=== PATIENT | female | born 1985 | race Caucasian/White ===

== ENCOUNTER 2017-03-28 18:19 | Emergency (ER) | payer OTHER ==
[~2017-03-28] VITALS: Ht 160 cm; Wt 59.1 kg
[~2017-03-28 18:19] MED LIST: AMLO-511 PO; ATEN25TA PO; CIPR-278 PO; CLIN300C3 PO
[2017-03-28] MEDS ORDERED: CITA10TA68 PO (18:42)
[2017-03-28] MEDS ORDERED: CLON1 PO (18:42)
[2017-03-28] MEDS ORDERED: LORazepam 1 MG TABLET PO ONE (19:00)
[2017-03-28 19:22] LABS: AMPHET/METH SCREEN,URINE NEGATIVE (NEGATIVE); BARBITURATE SCREEN, URINE NEGATIVE (NEGATIVE); BENZODIAZEPINES SCREEN,URINE NEGATIVE (NEGATIVE); CANNABINOID SCREEN,URINE POSITIVE (NEGATIVE); COCAINE SCREEN,URINE NEGATIVE (NEGATIVE); METHADONE SCREEN, URINE NEGATIVE (NEGATIVE); OPIATE SCREEN,URINE NEGATIVE (NEGATIVE); PHENCYCLIDINE SCREEN,URINE NEGATIVE (NEGATIVE)
[2017-03-28 19:57] VITALS: BP 121/78
== END 2017-03-28 20:10 | disposition home or self-care (01) ==
LOC: EMS 18:27
DX: F41.9 Anxiety disorder, unspecified (principal); F32.9 Major depressive disorder, single episode, unspecified; I10 Essential (primary) hypertension; F19.90 Other psychoactive substance use, unspecified, uncomplicated; Z88.0 Allergy status to penicillin; Z88.2 Allergy status to sulfonamides; Z88.5 Allergy status to narcotic agent
CPT/HCPCS: 99284

== ENCOUNTER 2017-07-12 15:26 | Emergency (ER) | payer OTHER ==
[~2017-07-12] VITALS: Ht 160 cm; Wt 59.5 kg
[~2017-07-12 15:26] MED LIST changes: -AMLO-511 PO; -ATEN25TA PO; -CIPR-278 PO; +CITA10TA68 PO; -CLIN300C3 PO; +CLON1 PO
[2017-07-12 16:23] LABS: BASOPHILS % (AUTO) 0.6 % (0.0-2.0); EOSINOPHILS % (AUTO) 1.5 % (1.0-6.0); HEMATOCRIT 37.1 % (36-46); LYMPHOCYTES # (AUTO) 2.3 K/uL (1.0-4.8); LYMPHOCYTES % (AUTO) 33.6 % (22.0-44.0); MEAN CORPUSCULAR HEMOGLOBIN 31.8 pg (26.0-34.0); MEAN CORPUSCULAR HGB CONC 35.1 G/dL (31.0-37.0); MEAN CORPUSCULAR VOLUME 91 fL (80-100); MONOCYTES # (AUTO) 0.4 K/uL (0.1-1.0); MONOCYTES % (AUTO) 6.1 % (2.0-9.0); NEUTROPHILS # (AUTO) 3.9 K/uL (1.8-7.7); NEUTROPHILS % (AUTO) 58.2 % (40.0-70.0); PLATELET COUNT (AUTO) 163 K/uL (150-450); RED BLOOD CELL COUNT(AUTO) 4.09 MIL/uL (4.00-5.20); RED CELL DISTRIBUTION WIDTH 12.6 % (11.5-14.5)
[2017-07-12 16:35] LABS: ANION GAP 7 mmol/L (8-16); CALCIUM, TOTAL 8.4 mg/dL (8.8-10.5); CARBON DIOXIDE 28 mmol/L (22-29); CHLORIDE 105 mmol/L (98-107); CREATININE 0.71 mg/dL (0.60-1.30); GLOMERULAR FILTR. RATE CALC > 60 mL/min (>60); GLUCOSE,RANDOM 87 mg/dL (70-110); SODIUM SERUM 140 mmol/L (136-145); UREA NITROGEN, BLOOD 9 mg/dL (7-18)
[2017-07-12 16:43] LABS: ALANINE AMINOTRANSFERASE 30 U/L (12-78); ALBUMIN 3.8 g/dL (3.4-5.0); ALKALINE PHOSPHATASE 50 U/L (46-116); ASPARTATE AMINOTRANSFERASE 25 U/L (15-37); BILIRUBIN,TOTAL 0.3 mg/dL (0.1-1.0); TOTAL PROTEIN, SERUM 7.2 g/dL (6.4-8.2)
[2017-07-12 16:46] LABS: B-TYPE NATRIURETIC PEPTIDE < 5 pg/mL (0-100)
[2017-07-12 18:14] LABS: PLATELET MORPHOLOGY COMMENT GIANT PLTS PRESENT
[2017-07-12 19:30] VITALS: BP 127/84
[2017-07-12 19:37] LABS: APPEARANCE,URINE CLEAR (CLEAR)
[2017-07-12 19:38] LABS: BILIRUBIN,URINE NEGATIVE (NEGATIVE); GLUCOSE, URINE (UA) NEGATIVE (NEGATIVE); KETONES,URINE NEGATIVE (NEGATIVE); LEUKOCYTE ESTERASE ,URINE NEGATIVE (NEGATIVE); NITRATE,URINE NEGATIVE (NEGATIVE); OCCULT BLOOD,URINE NEGATIVE (NEGATIVE); PH,URINE 6.5 (5.0-8.0); PROTEIN,URINE NEGATIVE (NEGATIVE); UROBILINOGEN,URINE 0.2 mg/dL (<=1.0)
[2017-07-12 19:41] LABS: AMPHET/METH SCREEN,URINE NEGATIVE (NEGATIVE); BARBITURATE SCREEN, URINE NEGATIVE (NEGATIVE); BENZODIAZEPINES SCREEN,URINE NEGATIVE (NEGATIVE); CANNABINOID SCREEN,URINE NEGATIVE (NEGATIVE); COCAINE SCREEN,URINE NEGATIVE (NEGATIVE); METHADONE SCREEN, URINE NEGATIVE (NEGATIVE); OPIATE SCREEN,URINE NEGATIVE (NEGATIVE)
[2017-07-12 19:42] LABS: PHENCYCLIDINE SCREEN,URINE NEGATIVE (NEGATIVE)
== END 2017-07-12 20:03 | disposition home or self-care (01) ==
LOC: EMS 15:27
DX: R51 Headache (principal); R42 Dizziness and giddiness; F32.9 Major depressive disorder, single episode, unspecified; F41.9 Anxiety disorder, unspecified; R06.02 Shortness of breath; R05 Cough; I10 Essential (primary) hypertension; F15.10 Other stimulant abuse, uncomplicated; Z88.0 Allergy status to penicillin; Z88.2 Allergy status to sulfonamides; Z79.899 Other long term (current) drug therapy
CPT/HCPCS: 93005; 99285

== ENCOUNTER 2017-12-12 23:07 | Emergency (ER) | payer OTHER ==
[~2017-12-12] VITALS: Ht 160 cm; Wt 61.8 kg
[2017-12-12] MEDS ORDERED: TRAZ-219 PO (23:39)
[2017-12-12] MEDS ORDERED: ESCI20TA PO (23:39)
[2017-12-12 23:49] LABS: BASOPHILS % (AUTO) 0.5 % (0.0-2.0); EOSINOPHILS % (AUTO) 1.9 % (1.0-6.0); HEMATOCRIT 35.3 % (36-46); HEMOGLOBIN 12.3 g/dL (12.0-16.0); LYMPHOCYTES # (AUTO) 1.9 K/uL (1.0-4.8); LYMPHOCYTES % (AUTO) 28.6 % (22.0-44.0); MEAN CORPUSCULAR HEMOGLOBIN 32.1 pg (26.0-34.0); MEAN CORPUSCULAR HGB CONC 34.7 G/dL (31.0-37.0); MEAN CORPUSCULAR VOLUME 93 fL (80-100); MONOCYTES # (AUTO) 0.5 K/uL (0.1-1.0); MONOCYTES % (AUTO) 8.1 % (2.0-9.0); NEUTROPHILS # (AUTO) 4.1 K/uL (1.8-7.7); NEUTROPHILS % (AUTO) 60.9 % (40.0-70.0); PLATELET COUNT (AUTO) 160 K/uL (150-450); RED BLOOD CELL COUNT(AUTO) 3.82 MIL/uL (4.00-5.20); RED CELL DISTRIBUTION WIDTH 13.2 % (11.5-14.5)
[2017-12-13 01:54] VITALS: BP 134/78
== END 2017-12-13 02:14 | disposition home or self-care (01) ==
LOC: EMS 23:08
DX: N93.9 Abnormal uterine and vaginal bleeding, unspecified (principal); M25.552 Pain in left hip; F41.9 Anxiety disorder, unspecified; F32.9 Major depressive disorder, single episode, unspecified; I10 Essential (primary) hypertension; F15.90 Other stimulant use, unspecified, uncomplicated; Z88.0 Allergy status to penicillin; Z88.2 Allergy status to sulfonamides; Z88.8 Allergy status to other drugs, medicaments and biological substances; Z79.899 Other long term (current) drug therapy

== ENCOUNTER 2018-01-06 21:30 | Emergency (ER) | payer OTHER ==
[~2018-01-06] VITALS: Ht 160 cm; Wt 59.1 kg
[~2018-01-06 21:30] MED LIST changes: -CITA10TA68 PO; -CLON1 PO; +ESCI20TA PO; +TRAZ-219 PO
[2018-01-06 21:53] VITALS: BP 115/78
[2018-01-06] MEDS ORDERED: TRAZ-220 PO (21:58)
[2018-01-06] MEDS ORDERED: ARIP5TAB8 PO (21:58)
[2018-01-06 22:29] LABS: BASOPHILS % (AUTO) 0.7 % (0.0-2.0); EOSINOPHILS % (AUTO) 0.8 % (1.0-6.0); HEMATOCRIT 39.6 % (36-46); HEMOGLOBIN 13.5 g/dL (12.0-16.0); LYMPHOCYTES # (AUTO) 1.8 K/uL (1.0-4.8); LYMPHOCYTES % (AUTO) 23.9 % (22.0-44.0); MEAN CORPUSCULAR HEMOGLOBIN 31.3 pg (26.0-34.0); MEAN CORPUSCULAR HGB CONC 34.2 G/dL (31.0-37.0); MEAN CORPUSCULAR VOLUME 91 fL (80-100); MONOCYTES # (AUTO) 0.4 K/uL (0.1-1.0); MONOCYTES % (AUTO) 5.7 % (2.0-9.0); NEUTROPHILS # (AUTO) 5.3 K/uL (1.8-7.7); NEUTROPHILS % (AUTO) 68.9 % (40.0-70.0); PLATELET COUNT (AUTO) 213 K/uL (150-450); RED BLOOD CELL COUNT(AUTO) 4.33 MIL/uL (4.00-5.20); RED CELL DISTRIBUTION WIDTH 13.1 % (11.5-14.5)
[2018-01-06 22:36] LABS: ANION GAP 14 mmol/L (8-16); CALCIUM, TOTAL 8.5 mg/dL (8.8-10.5); CARBON DIOXIDE 22 mmol/L (22-29); CHLORIDE 107 mmol/L (98-107); CREATININE 0.62 mg/dL (0.60-1.30); GLOMERULAR FILTR. RATE CALC > 60 mL/min (>60); GLUCOSE,RANDOM 85 mg/dL (70-110); POTASSIUM 3.4 mmol/L (3.5-5.1); SODIUM SERUM 143 mmol/L (136-145); UREA NITROGEN, BLOOD 9 mg/dL (7-18)
[2018-01-06 22:42] LABS: ALANINE AMINOTRANSFERASE 23 U/L (12-78); ALBUMIN 4.1 g/dL (3.4-5.0); ALKALINE PHOSPHATASE 53 U/L (46-116); ASPARTATE AMINOTRANSFERASE 17 U/L (15-37); BILIRUBIN,TOTAL 0.4 mg/dL (0.1-1.0); TOTAL PROTEIN, SERUM 8.3 g/dL (6.4-8.2)
== END 2018-01-06 23:10 | disposition left against medical advice (07) ==
LOC: EMS 21:31
DX: R45.851 Suicidal ideations (principal); Z53.21 Procedure and treatment not carried out due to patient leaving prior to being seen by health care provider
CPT/HCPCS: 36415; 80053; 85025; G0480

== ENCOUNTER 2018-07-08 16:32 | Emergency (ER) | payer OTHER ==
[~2018-07-08] VITALS: Ht 160 cm; Wt 62.7 kg
[~2018-07-08 16:32] MED LIST changes: +ARIP5TAB8 PO; -TRAZ-219 PO; +TRAZ-220 PO
[2018-07-08] MEDS ORDERED: BACITRACIN 0.9 GM PACKET OINTMENT TP ONE (17:30)
[2018-07-08] MEDS ORDERED: LIDOCAINE/PF 1% 5 ML VIAL INJ ONE (17:30)
[2018-07-08 18:05] VITALS: BP 127/80
== END 2018-07-08 18:25 | disposition home or self-care (01) ==
LOC: EMS 16:32
DX: S81.812A Laceration without foreign body, left lower leg, initial encounter (principal); I10 Essential (primary) hypertension; F41.9 Anxiety disorder, unspecified; F32.9 Major depressive disorder, single episode, unspecified; F19.90 Other psychoactive substance use, unspecified, uncomplicated; Z88.1 Allergy status to other antibiotic agents; Z88.5 Allergy status to narcotic agent; Z88.0 Allergy status to penicillin; Z88.2 Allergy status to sulfonamides; W25.XXXA Contact with sharp glass, initial encounter; Y93.89 Activity, other specified; Y92.89 Other specified places as the place of occurrence of the external cause; Y99.8 Other external cause status
CPT/HCPCS: 12002; 99283; J2001

== ENCOUNTER 2018-08-22 19:15 | Emergency (ER) | payer OTHER ==
[~2018-08-22] VITALS: Ht 170.2 cm; Wt 65.0 kg
[2018-08-22 19:46] LABS: BASOPHILS % (AUTO) 1.4 % (0.0-2.0); EOSINOPHILS % (AUTO) 0.6 % (1.0-6.0); LYMPHOCYTES # (AUTO) 1.9 K/uL (1.0-4.8); LYMPHOCYTES % (AUTO) 35.6 % (22.0-44.0); MEAN CORPUSCULAR HEMOGLOBIN 29.4 pg (26.0-34.0); MEAN CORPUSCULAR HGB CONC 32.5 G/dL (31.0-37.0); MEAN CORPUSCULAR VOLUME 90 fL (80-100); MONOCYTES # (AUTO) 0.3 K/uL (0.1-1.0); MONOCYTES % (AUTO) 5.6 % (2.0-9.0); NEUTROPHILS % (AUTO) 56.8 % (40.0-70.0); PLATELET COUNT (AUTO) 195 K/uL (150-450); RED CELL DISTRIBUTION WIDTH 15.3 % (11.5-14.5)
[2018-08-22 19:51] LABS: ANION GAP 10 mmol/L (8-16); CALCIUM, TOTAL 9.2 mg/dL (8.8-10.5); CARBON DIOXIDE 26 mmol/L (22-29); CHLORIDE 105 mmol/L (98-107); CREATININE 0.87 mg/dL (0.60-1.30); GLOMERULAR FILTR. RATE CALC > 60 mL/min (>60); GLUCOSE,RANDOM 104 mg/dL (70-110); POTASSIUM 3.2 mmol/L (3.5-5.1); SODIUM SERUM 141 mmol/L (136-145); UREA NITROGEN, BLOOD 11 mg/dL (7-18)
[2018-08-22 20:02] LABS: ALANINE AMINOTRANSFERASE 20 U/L (12-78); ALBUMIN 3.5 g/dL (3.4-5.0); ALKALINE PHOSPHATASE 54 U/L (46-116); ASPARTATE AMINOTRANSFERASE 21 U/L (15-37); BILIRUBIN,TOTAL 0.4 mg/dL (0.1-1.0); HCG,QUANTITATIVE < 1 mIU/mL (0-6)
[2018-08-22 20:22] LABS: AMPHET/METH SCREEN,URINE NEGATIVE (NEGATIVE); BARBITURATE SCREEN, URINE NEGATIVE (NEGATIVE); BENZODIAZEPINES SCREEN,URINE NEGATIVE (NEGATIVE); CANNABINOID SCREEN,URINE NEGATIVE (NEGATIVE); COCAINE SCREEN,URINE NEGATIVE (NEGATIVE); METHADONE SCREEN, URINE NEGATIVE (NEGATIVE); OPIATE SCREEN,URINE NEGATIVE (NEGATIVE)
[2018-08-22 20:23] LABS: PHENCYCLIDINE SCREEN,URINE NEGATIVE (NEGATIVE)
[2018-08-22] MEDS ORDERED: QUEtiapine FUMARATE 200 MG TABLET PO ONE (21:00)
[2018-08-22] MEDS ORDERED: QUEtiapine FUMARATE 100 MG TABLET PO ONE (21:15)
[2018-08-23 00:20] VITALS: BP 112/72
== END 2018-08-23 00:30 | disposition home or self-care (01) ==
LOC: EMS 19:17
DX: F41.9 Anxiety disorder, unspecified (principal); F31.9 Bipolar disorder, unspecified; I10 Essential (primary) hypertension; F12.90 Cannabis use, unspecified, uncomplicated; Z88.0 Allergy status to penicillin; Z88.1 Allergy status to other antibiotic agents; Z88.2 Allergy status to sulfonamides; Z88.8 Allergy status to other drugs, medicaments and biological substances; Z79.899 Other long term (current) drug therapy
CPT/HCPCS: 36415; 80053; 80307; 84702; 85025; 99284; G0480

== ENCOUNTER 2018-10-28 19:30 | Emergency (ER) | payer OTHER ==
[~2018-10-28] VITALS: Ht 160 cm; Wt 63.6 kg
[2018-10-28] MEDS ORDERED: AMLO5TAB9 PO (19:44)
[2018-10-28] MEDS ORDERED: QUET100T PO (19:44)
[2018-10-28] MEDS ORDERED: ATEN25TA PO (19:44)
[2018-10-28 20:51] LABS: BASOPHILS % (AUTO) 1.3 % (0.0-2.0); EOSINOPHILS % (AUTO) 3.4 % (1.0-6.0); HEMATOCRIT 35.2 % (36-46); HEMOGLOBIN 11.3 g/dL (12.0-16.0); LYMPHOCYTES % (AUTO) 37.5 % (22.0-44.0); MEAN CORPUSCULAR HGB CONC 32.2 G/dL (31.0-37.0); MEAN CORPUSCULAR VOLUME 90 fL (80-100); MONOCYTES # (AUTO) 0.4 K/uL (0.1-1.0); MONOCYTES % (AUTO) 7.8 % (2.0-9.0); NEUTROPHILS # (AUTO) 2.7 K/uL (1.8-7.7); PLATELET COUNT (AUTO) 182 K/uL (150-450); RED BLOOD CELL COUNT(AUTO) 3.91 MIL/uL (4.00-5.20); RED CELL DISTRIBUTION WIDTH 15.3 % (11.5-14.5)
[2018-10-28 21:04] LABS: ANION GAP 11 mmol/L (8-16); CALCIUM, TOTAL 8.9 mg/dL (8.8-10.5); CARBON DIOXIDE 25 mmol/L (22-29); CHLORIDE 103 mmol/L (98-107); GLOMERULAR FILTR. RATE CALC > 60 mL/min (>60); GLUCOSE,RANDOM 90 mg/dL (70-110); POTASSIUM 3.3 mmol/L (3.5-5.1); SODIUM SERUM 139 mmol/L (136-145); UREA NITROGEN, BLOOD 7 mg/dL (7-18)
[2018-10-28 21:15] LABS: ALANINE AMINOTRANSFERASE 13 U/L (12-78); ALBUMIN 3.7 g/dL (3.4-5.0); ALKALINE PHOSPHATASE 49 U/L (46-116); ASPARTATE AMINOTRANSFERASE 19 U/L (15-37); BILIRUBIN,TOTAL 0.8 mg/dL (0.1-1.0); HCG,QUANTITATIVE < 1 mIU/mL (0-6); LIPASE 91 U/L (73-393); TOTAL PROTEIN, SERUM 6.9 g/dL (6.4-8.2)
[2018-10-28] MEDS ORDERED: KETOROLAC TROMETHAMINE 30 MG/ML VIAL IVP ONE (22:00)
[2018-10-28] MEDS ORDERED: METOCLOPRAMIDE HCL 5 MG/ML 2 ML VIAL IVP ONE (22:00)
[2018-10-28 22:24] LABS: APPEARANCE,URINE CLOUDY (CLEAR); BILIRUBIN,URINE NEGATIVE (NEGATIVE); GLUCOSE, URINE (UA) NEGATIVE (NEGATIVE); KETONES,URINE NEGATIVE (NEGATIVE); LEUKOCYTE ESTERASE ,URINE TRACE (NEGATIVE); NITRATE,URINE POSITIVE (NEGATIVE); OCCULT BLOOD,URINE NEGATIVE (NEGATIVE); PROTEIN,URINE NEGATIVE (NEGATIVE)
[2018-10-28 22:32] LABS: BACTERIA,URINE Many /HPF (None Seen)
[2018-10-28 22:33] LABS: RBC,URINE 0-2 /HPF (0-2)
[2018-10-28 22:34] LABS: SQUAMOUS EPITHELIAL CELL,UR Few /LPF (None Seen)
[2018-10-28 22:35] LABS: TRANSITIONAL EPI CELLS,URINE Rare /LPF (None Seen)
[2018-10-29 00:43] VITALS: BP 129/83
== END 2018-10-29 00:45 | disposition home or self-care (01) ==
LOC: EMS 19:32
DX: N39.0 Urinary tract infection, site not specified (principal); F41.9 Anxiety disorder, unspecified; F31.9 Bipolar disorder, unspecified; I10 Essential (primary) hypertension; F12.90 Cannabis use, unspecified, uncomplicated; Z88.8 Allergy status to other drugs, medicaments and biological substances; Z88.0 Allergy status to penicillin; Z88.1 Allergy status to other antibiotic agents; Z98.51 Tubal ligation status
CPT/HCPCS: 36415; 76856; 80053; 81001; 83690; 84702; 85025; 87077; 87086; 96374; 96375; 99284; J1885; J2765

== ENCOUNTER 2019-01-12 23:32 | Emergency (ER) | payer OTHER ==
[~2019-01-12 23:32] MED LIST changes: +AMLO5TAB9 PO; -ARIP5TAB8 PO; +ATEN25TA PO; +QUET100T PO; -TRAZ-220 PO
[2019-01-13] MEDS ORDERED: QUET300T2 PO (17:53)
== END 2019-01-13 00:05 | disposition left against medical advice (07) ==
LOC: EMS 23:32
DX: Z53.21 Procedure and treatment not carried out due to patient leaving prior to being seen by health care provider (principal)

== ENCOUNTER 2019-01-13 16:43 | Emergency (ER) | payer OTHER ==
[~2019-01-13] VITALS: Ht 160 cm; Wt 65.9 kg
[2019-01-13] MEDS ORDERED: QUET300T2 PO (17:53)
[2019-01-13] MEDS ORDERED: LORazepam 2 MG/ML VIAL IVP ONE (18:00)
[2019-01-13] MEDS ORDERED: DiphenhydrAMINE HCL 50 MG/ML VIAL IVP ONE (18:00)
[2019-01-13 18:18] LABS: BASOPHILS % (AUTO) 0.6 % (0.0-2.0); EOSINOPHILS % (AUTO) 1.8 % (1.0-6.0); HEMATOCRIT 36.4 % (36-46); HEMOGLOBIN 12.3 g/dL (12.0-16.0); LYMPHOCYTES # (AUTO) 1.3 K/uL (1.0-4.8); LYMPHOCYTES % (AUTO) 24.3 % (22.0-44.0); MEAN CORPUSCULAR HGB CONC 33.7 G/dL (31.0-37.0); MEAN CORPUSCULAR VOLUME 89 fL (80-100); MONOCYTES # (AUTO) 0.4 K/uL (0.1-1.0); MONOCYTES % (AUTO) 8.1 % (2.0-9.0); NEUTROPHILS # (AUTO) 3.5 K/uL (1.8-7.7); NEUTROPHILS % (AUTO) 65.2 % (40.0-70.0); PLATELET COUNT (AUTO) 216 K/uL (150-450); RED CELL DISTRIBUTION WIDTH 14.9 % (11.5-14.5)
[2019-01-13 18:48] LABS: ALANINE AMINOTRANSFERASE 22 U/L (12-78); ALBUMIN 3.5 g/dL (3.4-5.0); ALKALINE PHOSPHATASE 54 U/L (46-116); ASPARTATE AMINOTRANSFERASE 21 U/L (15-37); BILIRUBIN,TOTAL 0.4 mg/dL (0.1-1.0); CALCIUM, TOTAL 8.3 mg/dL (8.8-10.5); CARBON DIOXIDE 29 mmol/L (22-29); CREATININE 0.66 mg/dL (0.60-1.30); GLOMERULAR FILTR. RATE CALC > 60 mL/min (>60); GLUCOSE,RANDOM 110 mg/dL (70-110); HCG,QUANTITATIVE < 1 mIU/mL (0-6); TOTAL PROTEIN, SERUM 7.4 g/dL (6.4-8.2); UREA NITROGEN, BLOOD 11 mg/dL (7-18)
[2019-01-13 18:57] LABS: ANION GAP 8 mmol/L (8-16); CHLORIDE 102 mmol/L (98-107); POTASSIUM 3.3 mmol/L (3.5-5.1); SODIUM SERUM 139 mmol/L (136-145)
[2019-01-13 20:44] LABS: APPEARANCE,URINE CLOUDY (CLEAR); BILIRUBIN,URINE NEGATIVE (NEGATIVE); GLUCOSE, URINE (UA) NEGATIVE (NEGATIVE); KETONES,URINE NEGATIVE (NEGATIVE); LEUKOCYTE ESTERASE ,URINE NEGATIVE (NEGATIVE); OCCULT BLOOD,URINE TRACE (NEGATIVE); PH,URINE 6.5 (5.0-8.0); PROTEIN,URINE NEGATIVE (NEGATIVE); UROBILINOGEN,URINE 0.2 mg/dL (<=1.0)
[2019-01-13 20:50] LABS: AMPHET/METH SCREEN,URINE NEGATIVE (NEGATIVE); BARBITURATE SCREEN, URINE NEGATIVE (NEGATIVE); BENZODIAZEPINES SCREEN,URINE NEGATIVE (NEGATIVE); CANNABINOID SCREEN,URINE NEGATIVE (NEGATIVE); COCAINE SCREEN,URINE NEGATIVE (NEGATIVE); METHADONE SCREEN, URINE NEGATIVE (NEGATIVE); OPIATE SCREEN,URINE NEGATIVE (NEGATIVE)
[2019-01-13 20:51] LABS: PHENCYCLIDINE SCREEN,URINE NEGATIVE (NEGATIVE)
[2019-01-13 20:55] LABS: BACTERIA,URINE Many /HPF (None Seen); NITRATE,URINE POSITIVE (NEGATIVE); SQUAMOUS EPITHELIAL CELL,UR Moderate /LPF (None Seen)
[2019-01-13 21:23] VITALS: BP 127/83
== END 2019-01-13 21:25 | disposition home or self-care (01) ==
LOC: EMS 16:44
DX: N39.0 Urinary tract infection, site not specified (principal); M62.838 Other muscle spasm; I10 Essential (primary) hypertension; F41.9 Anxiety disorder, unspecified; F10.20 Alcohol dependence, uncomplicated; F31.9 Bipolar disorder, unspecified; F12.90 Cannabis use, unspecified, uncomplicated; Z98.51 Tubal ligation status; Z79.899 Other long term (current) drug therapy; Z88.0 Allergy status to penicillin; Z88.1 Allergy status to other antibiotic agents; Z88.2 Allergy status to sulfonamides
CPT/HCPCS: 36415; 70450; 72125; 80053; 80307; 81001; 81025; 84702; 85025; 87077; 87086; 87186; 96374; 96375; 99284; G0480; J1200; J2060

== ENCOUNTER 2019-01-23 20:23 | Inpatient (IN) | payer MEDICAID, OTHER ==
[~2019-01-23] VITALS: Ht 160 cm; Wt 67.9 kg
[~2019-01-23 20:23] MED LIST changes: -QUET100T PO; +QUET300T2 PO
[2019-01-23 21:46] LABS: BASOPHILS % (AUTO) 1.1 % (0.0-2.0); EOSINOPHILS % (AUTO) 1.8 % (1.0-6.0); HEMATOCRIT 37.3 % (36-46); HEMOGLOBIN 12.4 g/dL (12.0-16.0); LYMPHOCYTES # (AUTO) 1.9 K/uL (1.0-4.8); LYMPHOCYTES % (AUTO) 34.2 % (22.0-44.0); MEAN CORPUSCULAR HEMOGLOBIN 29.3 pg (26.0-34.0); MEAN CORPUSCULAR HGB CONC 33.3 G/dL (31.0-37.0); MEAN CORPUSCULAR VOLUME 88 fL (80-100); MONOCYTES # (AUTO) 0.4 K/uL (0.1-1.0); MONOCYTES % (AUTO) 7.2 % (2.0-9.0); NEUTROPHILS # (AUTO) 3.1 K/uL (1.8-7.7); NEUTROPHILS % (AUTO) 55.7 % (40.0-70.0); PLATELET COUNT (AUTO) 220 K/uL (150-450); RED BLOOD CELL COUNT(AUTO) 4.24 MIL/uL (4.00-5.20); RED CELL DISTRIBUTION WIDTH 14.6 % (11.5-14.5)
[2019-01-23 21:59] LABS: ANION GAP 9 mmol/L (8-16); CALCIUM, TOTAL 8.4 mg/dL (8.8-10.5); CARBON DIOXIDE 27 mmol/L (22-29); CHLORIDE 107 mmol/L (98-107); GLOMERULAR FILTR. RATE CALC > 60 mL/min (>60); GLUCOSE,RANDOM 89 mg/dL (70-110); POTASSIUM 3.3 mmol/L (3.5-5.1); SODIUM SERUM 143 mmol/L (136-145); UREA NITROGEN, BLOOD 7 mg/dL (7-18)
[2019-01-23 22:03] LABS: AMPHET/METH SCREEN,URINE NEGATIVE (NEGATIVE); BARBITURATE SCREEN, URINE NEGATIVE (NEGATIVE); BENZODIAZEPINES SCREEN,URINE NEGATIVE (NEGATIVE); CANNABINOID SCREEN,URINE NEGATIVE (NEGATIVE); COCAINE SCREEN,URINE NEGATIVE (NEGATIVE); METHADONE SCREEN, URINE NEGATIVE (NEGATIVE); OPIATE SCREEN,URINE NEGATIVE (NEGATIVE)
[2019-01-23 22:04] LABS: PHENCYCLIDINE SCREEN,URINE NEGATIVE (NEGATIVE)
[2019-01-23 22:12] LABS: ALANINE AMINOTRANSFERASE 24 U/L (12-78); ALBUMIN 3.7 g/dL (3.4-5.0); ALKALINE PHOSPHATASE 50 U/L (46-116); ASPARTATE AMINOTRANSFERASE 24 U/L (15-37); BILIRUBIN,TOTAL 0.5 mg/dL (0.1-1.0); HCG,QUANTITATIVE 1 mIU/mL (0-6); TOTAL PROTEIN, SERUM 7.6 g/dL (6.4-8.2)
[2019-01-23] MEDS ORDERED: POTASSIUM CHLORIDE 20 MEQ ER TABLET PO ONE (22:30)
[2019-01-24] VITALS (12 sets, daily range): BP systolic 96–131; BP diastolic 53–90
[2019-01-24] MEDS ORDERED: ZOLPIDEM TARTRATE 10 MG TABLET PO PRN (01:00)
[2019-01-24] MEDS ORDERED: QUEtiapine FUMARATE 100 MG TABLET PO PRN (01:00)
[2019-01-24] MEDS: LORazepam 2 MG TABLET PO PRN ×2 (03:51→08:30)
[2019-01-24] MEDS ORDERED: INFLUENZA VIRUS VACCINE QVS 2019-20 (3YR+)/PF 60 MCG/0.5 ML SYRINGE IM ONE (05:30)
[2019-01-24] MEDS ORDERED: GuaiFENesin/D-METHORPHAN [SUGAR-FREE] 200-20MG/10 ML SYRUP UDCUP PO PRN (09:15)
[2019-01-24] MEDS ORDERED: MAG HYDROX/AL HYDROX/SIMETH ES 30 ML SUSPENSION UDCUP PO PRN (09:15)
[2019-01-24] MEDS ORDERED: PETROLATUM,WHITE 28 GM JELLY TP PRN (09:15)
[2019-01-24] MEDS ORDERED: IBUPROFEN 400 MG TABLET PO PRN (09:15)
[2019-01-24] MEDS ORDERED: ACETAMINOPHEN 325 MG TABLET PO PRN (09:15)
[2019-01-24] MEDS ORDERED: NICOTINE 14 MG/24 HOUR PATCH TD PRN (09:15)
[2019-01-24] MEDS ORDERED: ALBUTEROL SULFATE HFA 90 MCG/PUFF 8 GM INHALER IH PRN (09:15)
[2019-01-24] MEDS ORDERED: CloNIDine HCL 0.1 MG TABLET PO PRN (09:15)
[2019-01-24] MEDS ORDERED: MAGNESIUM HYDROXIDE SUSPENSION 30 ML UDCUP PO PRN (09:15)
[2019-01-24] MEDS ORDERED: LOPERAMIDE HCL 2 MG CAPSULE PO PRN (09:15)
[2019-01-24] MEDS ORDERED: DOCUSATE SODIUM 100 MG CAPSULE PO PRN (09:15)
[2019-01-24] MEDS ORDERED: METOCLOPRAMIDE HCL 5 MG TABLET PO PRN (10:00)
[2019-01-24] MEDS ORDERED: CYANOCOBALAMIN 1,000 MCG/ML VIAL IM ONE (12:00)
[2019-01-24] MEDS ORDERED: LORazepam 2 MG TABLET PO PRN (12:00)
[2019-01-24] MEDS: FOLIC ACID 1 MG TABLET PO SCH (13:03)
[2019-01-24] MEDS: MULTIVITAMINS WITH MINERALS, THERAPEUTIC TABLET PO SCH (13:03)
[2019-01-24] MEDS: ESCITALOPRAM OXALATE 20 MG TABLET PO SCH (13:06)
[2019-01-24] MEDS: THIAMINE HCL 100 MG TABLET PO SCH (16:08)
[2019-01-24] MEDS: QUEtiapine FUMARATE 300 MG TABLET PO SCH (20:22)
[2019-01-25] VITALS (10 sets, daily range): BP systolic 107–128; BP diastolic 60–85
[2019-01-25] MEDS ORDERED: LORazepam 2 MG TABLET PO PRN (07:00)
[2019-01-25] MEDS: ESCITALOPRAM OXALATE 20 MG TABLET PO SCH (08:08)
[2019-01-25] MEDS: MULTIVITAMINS WITH MINERALS, THERAPEUTIC TABLET PO SCH (08:08)
[2019-01-25] MEDS: FOLIC ACID 1 MG TABLET PO SCH (08:08)
[2019-01-25] MEDS: THIAMINE HCL 100 MG TABLET PO SCH ×2 (08:08→16:09)
[2019-01-25] MEDS: LORazepam 2 MG TABLET PO SCH ×4 (08:08→20:12)
[2019-01-25 08:22] LABS: BASOPHILS % (AUTO) 0.8 % (0.0-2.0); EOSINOPHILS % (AUTO) 3.1 % (1.0-6.0); HEMATOCRIT 32.5 % (36-46); HEMOGLOBIN 10.9 g/dL (12.0-16.0); LYMPHOCYTES # (AUTO) 2.1 K/uL (1.0-4.8); LYMPHOCYTES % (AUTO) 42.5 % (22.0-44.0); MEAN CORPUSCULAR HEMOGLOBIN 29.5 pg (26.0-34.0); MEAN CORPUSCULAR HGB CONC 33.7 G/dL (31.0-37.0); MEAN CORPUSCULAR VOLUME 87 fL (80-100); MONOCYTES # (AUTO) 0.4 K/uL (0.1-1.0); MONOCYTES % (AUTO) 8.1 % (2.0-9.0); NEUTROPHILS # (AUTO) 2.2 K/uL (1.8-7.7); NEUTROPHILS % (AUTO) 45.5 % (40.0-70.0); PLATELET COUNT (AUTO) 187 K/uL (150-450); RED BLOOD CELL COUNT(AUTO) 3.71 MIL/uL (4.00-5.20); RED CELL DISTRIBUTION WIDTH 14.5 % (11.5-14.5)
[2019-01-25 08:44] LABS: HEMOGLOBIN A1C 5.3 % (4.5-6.2)
[2019-01-25 08:57] LABS: ALANINE AMINOTRANSFERASE 16 U/L (12-78); ALBUMIN 2.8 g/dL (3.4-5.0); ALKALINE PHOSPHATASE 45 U/L (46-116); ANION GAP 7 mmol/L (8-16); ASPARTATE AMINOTRANSFERASE 20 U/L (15-37); BILIRUBIN,TOTAL 0.3 mg/dL (0.1-1.0); CALCIUM, TOTAL 7.9 mg/dL (8.8-10.5); CARBON DIOXIDE 29 mmol/L (22-29); CHLORIDE 104 mmol/L (98-107); CHOL/HDL RATIO 2.3 (3.9-5.7); CHOLESTEROL 136 mg/dL (131-200); CREATININE 0.76 mg/dL (0.60-1.30); GLOMERULAR FILTR. RATE CALC > 60 mL/min (>60); GLUCOSE,RANDOM 96 mg/dL (70-110); HDL CHOLESTEROL 58 mg/dL (40-60); LDL CHOL (CALC.) 56 mg/dL (0-130); SODIUM SERUM 140 mmol/L (136-145); THYROID STIMULATING HORMONE 2.75 uIU/mL (0.36-3.74); TRIGLYCERIDES 109 mg/dL (15-150); UREA NITROGEN, BLOOD 9 mg/dL (7-18)
[2019-01-25] MEDS ORDERED: POTASSIUM CHLORIDE 20 MEQ ER TABLET PO ONE (09:30)
[2019-01-25] MEDS: QUEtiapine FUMARATE 100 MG TABLET PO SCH (11:01)
[2019-01-25] MEDS: QUEtiapine FUMARATE 300 MG TABLET PO SCH (20:12)
[2019-01-26 00:10] VITALS: BP 116/78
[2019-01-26 04:35] VITALS: BP 119/76
[2019-01-26 04:59] VITALS: BP 119/76
[2019-01-26] MEDS: THIAMINE HCL 100 MG TABLET PO SCH ×2 (08:10→16:12)
[2019-01-26] MEDS: ESCITALOPRAM OXALATE 20 MG TABLET PO SCH (08:10)
[2019-01-26] MEDS: FOLIC ACID 1 MG TABLET PO SCH (08:10)
[2019-01-26] MEDS: MULTIVITAMINS WITH MINERALS, THERAPEUTIC TABLET PO SCH (08:10)
[2019-01-26] MEDS: LORazepam 2 MG TABLET PO SCH ×4 (08:11→20:24)
[2019-01-26] MEDS: QUEtiapine FUMARATE 100 MG TABLET PO SCH (08:11)
[2019-01-26 08:19] VITALS: BP 124/78
[2019-01-26 08:25] VITALS: BP 124/78
[2019-01-26 16:04] VITALS: BP 121/70
[2019-01-26] MEDS: QUEtiapine FUMARATE 300 MG TABLET PO SCH (20:24)
[2019-01-27 05:20] VITALS: BP 111/78
[2019-01-27] MEDS ORDERED: LORazepam 1 MG TABLET PO PRN (07:00)
[2019-01-27] MEDS: FOLIC ACID 1 MG TABLET PO SCH (08:09)
[2019-01-27] MEDS: ESCITALOPRAM OXALATE 20 MG TABLET PO SCH (08:09)
[2019-01-27] MEDS: MULTIVITAMINS WITH MINERALS, THERAPEUTIC TABLET PO SCH (08:09)
[2019-01-27] MEDS: LORazepam 1 MG TABLET PO SCH ×3 (08:09→16:22)
[2019-01-27] MEDS: QUEtiapine FUMARATE 100 MG TABLET PO SCH (08:09)
[2019-01-27] MEDS: THIAMINE HCL 100 MG TABLET PO SCH ×2 (08:09→17:00)
[2019-01-27 08:12] VITALS: BP 114/77
[2019-01-27 10:04] VITALS: BP 114/77
[2019-01-27 16:00] VITALS: BP 123/88
[2019-01-27] MEDS: QUEtiapine FUMARATE 300 MG TABLET PO SCH (20:04)
[2019-01-28] MEDS ORDERED: LORazepam 1 MG TABLET PO PRN (07:00)
== END 2019-01-27 20:00 | disposition left against medical advice (07) | DRG 751 ==
LOC: EMS 20:25 → B3A 01-24 01:32
PROVIDERS: ATTEND Psychiatry & Neurology Psychiatry
PROC: 3E0234Z Introduction of Serum, Toxoid and Vaccine into Muscle, Percutaneous Approach (ICD-10-PCS; principal; 2019-01-24)
DX: F33.2 Major depressive disorder, recurrent severe without psychotic features (principal); F20.9 Schizophrenia, unspecified; F12.10 Cannabis abuse, uncomplicated; F10.229 Alcohol dependence with intoxication, unspecified; E87.6 Hypokalemia; F41.9 Anxiety disorder, unspecified; I10 Essential (primary) hypertension; Y90.7 Blood alcohol level of 200-239 mg/100 ml; Z59.0 Homelessness; Z91.5 Personal history of self-harm; Z23 Encounter for immunization; R45.87 Impulsiveness; Z88.0 Allergy status to penicillin; Z88.2 Allergy status to sulfonamides; Z88.1 Allergy status to other antibiotic agents; Z98.51 Tubal ligation status; Z71.51 Drug abuse counseling and surveillance of drug abuser; Z53.29 Procedure and treatment not carried out because of patient's decision for other reasons
CPT/HCPCS: 83036; 84132; 84443; G0480; J3420

== ENCOUNTER 2019-01-28 17:22 | Inpatient (IN) | payer MEDICAID, OTHER ==
[~2019-01-28] VITALS: Ht 160 cm; Wt 69.9 kg
[~2019-01-28 17:22] MED LIST changes: -AMLO5TAB9 PO; -ATEN25TA PO; -QUET300T2 PO
[2019-01-28] MEDS ORDERED: BACITRACIN 0.9 GM PACKET OINTMENT TP ONE (18:30)
[2019-01-28] MEDS ORDERED: HALOPERIDOL 5 MG TABLET PO PRN (18:30)
[2019-01-28 18:42] LABS: BASOPHILS % (AUTO) 0.8 % (0.0-2.0); EOSINOPHILS % (AUTO) 1.9 % (1.0-6.0); HEMATOCRIT 38.4 % (36-46); HEMOGLOBIN 12.6 g/dL (12.0-16.0); LYMPHOCYTES # (AUTO) 1.9 K/uL (1.0-4.8); LYMPHOCYTES % (AUTO) 31.8 % (22.0-44.0); MEAN CORPUSCULAR HEMOGLOBIN 28.9 pg (26.0-34.0); MEAN CORPUSCULAR HGB CONC 32.7 G/dL (31.0-37.0); MEAN CORPUSCULAR VOLUME 89 fL (80-100); MONOCYTES # (AUTO) 0.5 K/uL (0.1-1.0); MONOCYTES % (AUTO) 7.7 % (2.0-9.0); NEUTROPHILS # (AUTO) 3.4 K/uL (1.8-7.7); NEUTROPHILS % (AUTO) 57.8 % (40.0-70.0); PLATELET COUNT (AUTO) 226 K/uL (150-450); RED BLOOD CELL COUNT(AUTO) 4.34 MIL/uL (4.00-5.20)
[2019-01-28 19:07] LABS: ANION GAP 10 mmol/L (8-16); CALCIUM, TOTAL 8.4 mg/dL (8.8-10.5); CARBON DIOXIDE 28 mmol/L (22-29); CHLORIDE 106 mmol/L (98-107); GLOMERULAR FILTR. RATE CALC > 60 mL/min (>60); GLUCOSE,RANDOM 90 mg/dL (70-110); POTASSIUM 3.6 mmol/L (3.5-5.1); SODIUM SERUM 144 mmol/L (136-145); UREA NITROGEN, BLOOD 9 mg/dL (7-18)
[2019-01-28 19:11] LABS: ALANINE AMINOTRANSFERASE 29 U/L (12-78); ALBUMIN 3.7 g/dL (3.4-5.0); ALKALINE PHOSPHATASE 50 U/L (46-116); ASPARTATE AMINOTRANSFERASE 35 U/L (15-37); BILIRUBIN,TOTAL 0.2 mg/dL (0.1-1.0); TOTAL PROTEIN, SERUM 7.6 g/dL (6.4-8.2)
[2019-01-28 19:23] LABS: AMPHET/METH SCREEN,URINE NEGATIVE (NEGATIVE); BARBITURATE SCREEN, URINE NEGATIVE (NEGATIVE); BENZODIAZEPINES SCREEN,URINE NEGATIVE (NEGATIVE); CANNABINOID SCREEN,URINE NEGATIVE (NEGATIVE); COCAINE SCREEN,URINE NEGATIVE (NEGATIVE); METHADONE SCREEN, URINE NEGATIVE (NEGATIVE); OPIATE SCREEN,URINE NEGATIVE (NEGATIVE)
[2019-01-28 19:26] LABS: PHENCYCLIDINE SCREEN,URINE NEGATIVE (NEGATIVE)
[2019-01-28 21:50] VITALS: BP 132/90
[2019-01-28 21:59] VITALS: BP 132/90
[2019-01-28] MEDS: ZOLPIDEM TARTRATE 10 MG TABLET PO PRN (21:59)
[2019-01-28 22:23] VITALS: BP 139/96
[2019-01-28 23:23] VITALS: BP 137/68
[2019-01-29] VITALS (8 sets, daily range): BP systolic 111–134; BP diastolic 60–99
[2019-01-29] MEDS ORDERED: PNEUMOCOCCAL VACCINE POLYVALENT 0.5 ML VIAL [PPSV23] IM ONE (01:45)
[2019-01-29] MEDS: LORazepam 2 MG TABLET PO PRN ×3 (05:32→12:28)
[2019-01-29] MEDS ORDERED: ALBUTEROL SULFATE HFA 90 MCG/PUFF 8 GM INHALER IH PRN (10:30)
[2019-01-29] MEDS ORDERED: ACETAMINOPHEN 325 MG TABLET PO PRN (10:30)
[2019-01-29] MEDS ORDERED: MAG HYDROX/AL HYDROX/SIMETH ES 30 ML SUSPENSION UDCUP PO PRN (10:30)
[2019-01-29] MEDS ORDERED: NICOTINE 14 MG/24 HOUR PATCH TD PRN (10:30)
[2019-01-29] MEDS ORDERED: MAGNESIUM HYDROXIDE SUSPENSION 30 ML UDCUP PO PRN (10:30)
[2019-01-29] MEDS ORDERED: CloNIDine HCL 0.1 MG TABLET PO PRN (10:30)
[2019-01-29] MEDS ORDERED: GuaiFENesin/D-METHORPHAN [SUGAR-FREE] 200-20MG/10 ML SYRUP UDCUP PO PRN (10:30)
[2019-01-29] MEDS ORDERED: IBUPROFEN 400 MG TABLET PO PRN (10:30)
[2019-01-29] MEDS ORDERED: DOCUSATE SODIUM 100 MG CAPSULE PO PRN (10:30)
[2019-01-29] MEDS ORDERED: LOPERAMIDE HCL 2 MG CAPSULE PO PRN (10:30)
[2019-01-29] MEDS: ONDANSETRON HCL 4 MG TABLET PO PRN (17:10)
[2019-01-29] MEDS: QUEtiapine FUMARATE 200 MG TABLET PO SCH (20:38)
[2019-01-30 05:24] VITALS: BP 101/63
[2019-01-30] MEDS: QUEtiapine FUMARATE 100 MG TABLET PO SCH (08:00)
[2019-01-30] MEDS: ESCITALOPRAM OXALATE 20 MG TABLET PO SCH (08:00)
[2019-01-30 08:04] VITALS: BP 120/84
[2019-01-30 08:34] VITALS: BP 120/84
[2019-01-30] MEDS: LORazepam 2 MG TABLET PO PRN ×2 (10:20→15:58)
[2019-01-30 16:00] VITALS: BP 113/72
[2019-01-30 17:00] VITALS: BP 113/72
[2019-01-30] MEDS: QUEtiapine FUMARATE 200 MG TABLET PO SCH (21:28)
[2019-01-31 05:21] VITALS: BP 115/75
[2019-01-31 05:23] VITALS: BP 115/75
[2019-01-31 08:00] VITALS: BP 100/52
[2019-01-31 08:24] VITALS: BP 100/52
[2019-01-31] MEDS: QUEtiapine FUMARATE 100 MG TABLET PO SCH (08:27)
[2019-01-31] MEDS: ESCITALOPRAM OXALATE 20 MG TABLET PO SCH (08:27)
[2019-01-31] MEDS: LORazepam 2 MG TABLET PO PRN ×2 (10:34→17:26)
[2019-01-31 16:15] VITALS: BP 118/73
[2019-01-31 17:20] VITALS: BP 118/73
[2019-01-31] MEDS: QUEtiapine FUMARATE 200 MG TABLET PO SCH (19:59)
[2019-02-01 00:44] VITALS: BP 111/62
[2019-02-01 01:04] VITALS: BP 106/68
[2019-02-01 08:07] VITALS: BP 110/71
[2019-02-01] MEDS: ESCITALOPRAM OXALATE 20 MG TABLET PO SCH (08:37)
[2019-02-01] MEDS: QUEtiapine FUMARATE 100 MG TABLET PO SCH (08:37)
[2019-02-01] MEDS: LORazepam 2 MG TABLET PO PRN ×3 (08:40→17:09)
[2019-02-01] MEDS: PETROLATUM,WHITE 28 GM JELLY TP PRN (10:10)
[2019-02-01 10:12] VITALS: BP 110/71
[2019-02-01 16:16] VITALS: BP 114/73
[2019-02-01 16:35] VITALS: BP 114/73
[2019-02-01] MEDS: QUEtiapine FUMARATE 200 MG TABLET PO SCH (20:10)
[2019-02-02 05:06] VITALS: BP 120/80
[2019-02-02] MEDS: LORazepam 2 MG TABLET PO PRN ×3 (08:02→20:11)
[2019-02-02] MEDS: QUEtiapine FUMARATE 100 MG TABLET PO SCH ×2 (08:02→16:04)
[2019-02-02] MEDS: ESCITALOPRAM OXALATE 20 MG TABLET PO SCH (08:02)
[2019-02-02 08:09] VITALS: BP 107/60
[2019-02-02] MEDS ORDERED: QUEtiapine FUMARATE 100 MG TABLET PO SCH (09:00)
[2019-02-02 09:37] VITALS: BP 107/60
[2019-02-02 16:20] VITALS: BP 125/88
[2019-02-02 17:06] VITALS: BP 110/65
[2019-02-02] MEDS: QUEtiapine FUMARATE 200 MG TABLET PO SCH (20:11)
[2019-02-03 06:42] VITALS: BP 116/75
[2019-02-03 08:16] VITALS: BP 116/73
[2019-02-03] MEDS: ESCITALOPRAM OXALATE 20 MG TABLET PO SCH (08:37)
[2019-02-03] MEDS: QUEtiapine FUMARATE 100 MG TABLET PO SCH ×2 (08:37→16:32)
[2019-02-03] MEDS: LORazepam 2 MG TABLET PO PRN ×2 (08:48→14:43)
[2019-02-03 09:31] VITALS: BP 116/73
[2019-02-03] MEDS: BuPROPion HCL XL 150 MG ER TABLET PO SCH (12:38)
[2019-02-03 16:40] VITALS: BP 123/82
[2019-02-03] MEDS: PETROLATUM,WHITE 28 GM JELLY TP PRN (19:14)
[2019-02-03] MEDS: QUEtiapine FUMARATE 200 MG TABLET PO SCH (20:05)
[2019-02-03] MEDS: ZOLPIDEM TARTRATE 10 MG TABLET PO PRN (21:13)
[2019-02-04 06:05] VITALS: BP 124/80
[2019-02-04] MEDS: LORazepam 2 MG TABLET PO PRN ×2 (06:06→11:59)
[2019-02-04] MEDS: ESCITALOPRAM OXALATE 20 MG TABLET PO SCH (08:14)
[2019-02-04] MEDS: BuPROPion HCL XL 150 MG ER TABLET PO SCH (08:14)
[2019-02-04] MEDS: QUEtiapine FUMARATE 100 MG TABLET PO SCH ×2 (08:15→16:11)
[2019-02-04 08:18] VITALS: BP 112/63
[2019-02-04] MEDS: ONDANSETRON HCL 4 MG TABLET PO PRN (15:23)
[2019-02-04 16:15] VITALS: BP 120/84
[2019-02-04] MEDS: QUEtiapine FUMARATE 200 MG TABLET PO SCH (20:04)
[2019-02-05 06:30] VITALS: BP 115/77
[2019-02-05] MEDS: LORazepam 2 MG TABLET PO PRN ×2 (07:06→14:58)
[2019-02-05 08:19] VITALS: BP 120/82
[2019-02-05] MEDS: QUEtiapine FUMARATE 100 MG TABLET PO SCH ×2 (08:40→16:27)
[2019-02-05] MEDS: BuPROPion HCL XL 150 MG ER TABLET PO SCH (08:40)
[2019-02-05] MEDS: ESCITALOPRAM OXALATE 20 MG TABLET PO SCH (08:40)
[2019-02-05] MEDS: ONDANSETRON HCL 4 MG TABLET PO PRN (13:09)
[2019-02-05 16:18] VITALS: BP 119/79
[2019-02-05] MEDS: QUEtiapine FUMARATE 300 MG TABLET PO SCH (20:36)
[2019-02-06 01:34] VITALS: BP 118/69
[2019-02-06 08:23] VITALS: BP 116/73
[2019-02-06] MEDS: ESCITALOPRAM OXALATE 20 MG TABLET PO SCH (08:23)
[2019-02-06] MEDS: LORazepam 2 MG TABLET PO PRN ×2 (08:23→16:09)
[2019-02-06] MEDS: BuPROPion HCL XL 150 MG ER TABLET PO SCH (08:23)
[2019-02-06] MEDS: QUEtiapine FUMARATE 100 MG TABLET PO SCH ×2 (08:23→16:09)
[2019-02-06 16:00] VITALS: BP 138/90
[2019-02-06] MEDS: QUEtiapine FUMARATE 300 MG TABLET PO SCH (21:28)
[2019-02-06] MEDS: ZOLPIDEM TARTRATE 10 MG TABLET PO PRN (21:28)
[2019-02-07 01:18] VITALS: BP 116/64
[2019-02-07 08:11] VITALS: BP 117/74
[2019-02-07] MEDS: BuPROPion HCL XL 150 MG ER TABLET PO SCH (08:23)
[2019-02-07] MEDS: QUEtiapine FUMARATE 100 MG TABLET PO SCH ×2 (08:24→16:08)
[2019-02-07] MEDS: ESCITALOPRAM OXALATE 20 MG TABLET PO SCH (08:24)
[2019-02-07] MEDS: LORazepam 2 MG TABLET PO PRN ×2 (10:42→16:08)
[2019-02-07 14:57] VITALS: BP 120/84
[2019-02-07 16:15] VITALS: BP 124/76
[2019-02-07] MEDS: QUEtiapine FUMARATE 300 MG TABLET PO SCH (20:33)
[2019-02-08 06:03] VITALS: BP 132/80
[2019-02-08] MEDS: QUEtiapine FUMARATE 100 MG TABLET PO SCH (08:07)
[2019-02-08] MEDS: BuPROPion HCL XL 150 MG ER TABLET PO SCH (08:07)
[2019-02-08] MEDS: ESCITALOPRAM OXALATE 20 MG TABLET PO SCH (08:07)
[2019-02-08 08:27] VITALS: BP 122/82
[2019-02-08] MEDS ORDERED: QUET100T PO (11:32)
[2019-02-08] MEDS ORDERED: QUET300T2 PO (11:32)
[2019-02-08] MEDS ORDERED: BUPR-93 PO (11:32)
== END 2019-02-08 14:45 | disposition home or self-care (01) | DRG 751 ==
LOC: EMS 17:26 → B3A 19:43
PROVIDERS: ADMIT Psychiatry & Neurology Psychiatry; ATTEND Psychiatry & Neurology Psychiatry
DX: F33.3 Major depressive disorder, recurrent, severe with psychotic symptoms (principal); F10.10 Alcohol abuse, uncomplicated; F12.90 Cannabis use, unspecified, uncomplicated; F41.9 Anxiety disorder, unspecified; I10 Essential (primary) hypertension; K21.9 Gastro-esophageal reflux disease without esophagitis; S51.812A Laceration without foreign body of left forearm, initial encounter; X78.9XXA Intentional self-harm by unspecified sharp object, initial encounter; S51.822A Laceration with foreign body of left forearm, initial encounter; F60.3 Borderline personality disorder; Y90.2 Blood alcohol level of 40-59 mg/100 ml; Y93.89 Activity, other specified; Y92.89 Other specified places as the place of occurrence of the external cause; Y99.8 Other external cause status; Z98.51 Tubal ligation status; Z88.1 Allergy status to other antibiotic agents; Z88.0 Allergy status to penicillin; Z88.2 Allergy status to sulfonamides; Z88.8 Allergy status to other drugs, medicaments and biological substances
CPT/HCPCS: 87081; 90732; G0480; Q0162

== ENCOUNTER 2019-03-31 20:13 | Emergency (ER) | payer MEDICAID, OTHER ==
[~2019-03-31 20:13] MED LIST changes: +BUPR-93 PO; +QUET100T PO; +QUET300T2 PO
== END 2019-03-31 20:25 | disposition left against medical advice (07) ==
LOC: EMS 20:15
DX: F10.229 Alcohol dependence with intoxication, unspecified (principal); F31.9 Bipolar disorder, unspecified; F41.9 Anxiety disorder, unspecified; I10 Essential (primary) hypertension; F12.90 Cannabis use, unspecified, uncomplicated; Z98.51 Tubal ligation status; Z79.899 Other long term (current) drug therapy; Z88.0 Allergy status to penicillin; Z88.2 Allergy status to sulfonamides; Z88.1 Allergy status to other antibiotic agents; Z98.890 Other specified postprocedural states

== ENCOUNTER 2019-07-02 23:17 | Emergency (ER) | payer SELFPAY ==
[~2019-07-02] VITALS: Ht 160 cm; Wt 72.7 kg
[2019-07-03] MEDS ORDERED: LORazepam 1 MG TABLET PO ONE (00:30)
[2019-07-03 00:42] LABS: BASOPHILS % (AUTO) 0.9 % (0.0-2.0); EOSINOPHILS % (AUTO) 0.6 % (1.0-6.0); HEMATOCRIT 36.6 % (36-46); HEMOGLOBIN 12.2 g/dL (12.0-16.0); LYMPHOCYTES # (AUTO) 2.4 K/uL (1.0-4.8); LYMPHOCYTES % (AUTO) 25.3 % (22.0-44.0); MEAN CORPUSCULAR HEMOGLOBIN 29.6 pg (26.0-34.0); MEAN CORPUSCULAR HGB CONC 33.5 G/dL (31.0-37.0); MEAN CORPUSCULAR VOLUME 88 fL (80-100); MONOCYTES # (AUTO) 0.6 K/uL (0.1-1.0); MONOCYTES % (AUTO) 6.2 % (2.0-9.0); NEUTROPHILS # (AUTO) 6.4 K/uL (1.8-7.7); PLATELET COUNT (AUTO) 263 K/uL (150-450); RED BLOOD CELL COUNT(AUTO) 4.14 MIL/uL (4.00-5.20)
[2019-07-03 00:57] LABS: INR 0.9 (0.9-1.1); PROTHROMBIN TIME 9.7 SEC (9.4-11.6)
[2019-07-03 01:20] LABS: ALANINE AMINOTRANSFERASE 37 U/L (12-78); ALBUMIN 3.8 g/dL (3.4-5.0); ALKALINE PHOSPHATASE 63 U/L (46-116); ANION GAP 14 mmol/L (8-16); ASPARTATE AMINOTRANSFERASE 26 U/L (15-37); B-TYPE NATRIURETIC PEPTIDE 5 pg/mL (0-100); BILIRUBIN,TOTAL 0.6 mg/dL (0.1-1.0); CALCIUM, TOTAL 8.7 mg/dL (8.8-10.5); CARBON DIOXIDE 22 mmol/L (22-29); CHLORIDE 102 mmol/L (98-107); CREATINE KINASE, TOTAL ONLY 213 U/L (26-192); CREATININE 0.82 mg/dL (0.60-1.30); GLOMERULAR FILTR. RATE CALC > 60 mL/min (>60); GLUCOSE,RANDOM 114 mg/dL (70-110); HCG,QUANTITATIVE < 1 mIU/mL (0-6); SODIUM SERUM 138 mmol/L (136-145); TOTAL PROTEIN, SERUM 7.8 g/dL (6.4-8.2); UREA NITROGEN, BLOOD 5 mg/dL (7-18)
[2019-07-03 01:38] LABS: POTASSIUM 2.9 mmol/L (3.5-5.1)
[2019-07-03] MEDS ORDERED: POTASSIUM CHLORIDE 20 MEQ ER TABLET PO ONE (01:45)
[2019-07-03 02:12] VITALS: BP 135/98
== END 2019-07-03 02:21 | disposition home or self-care (01) ==
LOC: EMS 23:18
DX: F41.9 Anxiety disorder, unspecified (principal); E87.6 Hypokalemia; F12.90 Cannabis use, unspecified, uncomplicated; Z98.51 Tubal ligation status; F32.9 Major depressive disorder, single episode, unspecified; I10 Essential (primary) hypertension; Z88.0 Allergy status to penicillin; Z88.2 Allergy status to sulfonamides; Z88.6 Allergy status to analgesic agent; Z79.899 Other long term (current) drug therapy
CPT/HCPCS: 71045; 80053; 82550; 83880; 84484; 84702; 85025; 85610; 85730; 93005; 99285; G0480

== ENCOUNTER 2019-07-29 18:54 | Emergency (ER) | payer SELFPAY ==
[~2019-07-29] VITALS: Ht 160 cm; Wt 68.2 kg
[~2019-07-29 18:54] MED LIST changes: -ESCI20TA PO; +ESCI20TA87 PO
[2019-07-29] MEDS ORDERED: AMLO5TAB9 PO (19:04)
[2019-07-29] MEDS ORDERED: ATEN-73 PO (19:04)
[2019-07-29] MEDS ORDERED: LORazepam 1 MG TABLET PO ONE (19:30)
[2019-07-29 21:09] VITALS: BP 124/71
== END 2019-07-29 21:26 | disposition home or self-care (01) ==
LOC: EMS 18:54
DX: F41.9 Anxiety disorder, unspecified (principal); F31.9 Bipolar disorder, unspecified; I10 Essential (primary) hypertension; Z88.0 Allergy status to penicillin; Z88.5 Allergy status to narcotic agent; Z88.1 Allergy status to other antibiotic agents

== ENCOUNTER 2019-09-19 21:29 | Emergency (ER) | payer MEDICAID ==
[~2019-09-19] VITALS: Ht 160 cm; Wt 72.7 kg
[~2019-09-19 21:29] MED LIST changes: +AMLO-257 PO; +ATEN-73 PO
[2019-09-19] MEDS ORDERED: LORazepam 1 MG TABLET PO ONE (22:15)
[2019-09-19 22:31] LABS: BASOPHILS % (AUTO) 1.2 % (0.0-2.0); EOSINOPHILS % (AUTO) 2.8 % (1.0-6.0); HEMATOCRIT 36.3 % (36-46); HEMOGLOBIN 11.9 g/dL (12.0-16.0); LYMPHOCYTES # (AUTO) 1.8 K/uL (1.0-4.8); MEAN CORPUSCULAR HEMOGLOBIN 29.3 pg (26.0-34.0); MEAN CORPUSCULAR HGB CONC 32.8 G/dL (31.0-37.0); MEAN CORPUSCULAR VOLUME 89 fL (80-100); MONOCYTES # (AUTO) 0.5 K/uL (0.1-1.0); MONOCYTES % (AUTO) 8.8 % (2.0-9.0); NEUTROPHILS # (AUTO) 3.2 K/uL (1.8-7.7); NEUTROPHILS % (AUTO) 56.2 % (40.0-70.0); PLATELET COUNT (AUTO) 200 K/uL (150-450); RED BLOOD CELL COUNT(AUTO) 4.07 MIL/uL (4.00-5.20); RED CELL DISTRIBUTION WIDTH 15.8 % (11.5-14.5)
[2019-09-19 22:42] LABS: ANION GAP 6 mmol/L (8-16); CALCIUM, TOTAL 8.7 mg/dL (8.8-10.5); CARBON DIOXIDE 30 mmol/L (22-29); CHLORIDE 103 mmol/L (98-107); CREATININE 0.83 mg/dL (0.60-1.30); GLOMERULAR FILTR. RATE CALC > 60 mL/min (>60); GLUCOSE,RANDOM 126 mg/dL (70-110); SODIUM SERUM 139 mmol/L (136-145); UREA NITROGEN, BLOOD 9 mg/dL (7-18)
[2019-09-19] MEDS ORDERED: POTASSIUM CHLORIDE 20 MEQ ER TABLET PO ONE (23:15)
[2019-09-19 23:17] LABS: APPEARANCE,URINE CLEAR (CLEAR); BILIRUBIN,URINE NEGATIVE (NEGATIVE); GLUCOSE, URINE (UA) NEGATIVE (NEGATIVE); KETONES,URINE NEGATIVE (NEGATIVE); LEUKOCYTE ESTERASE ,URINE NEGATIVE (NEGATIVE); NITRATE,URINE POSITIVE (NEGATIVE); OCCULT BLOOD,URINE NEGATIVE (NEGATIVE); PROTEIN,URINE NEGATIVE (NEGATIVE); UROBILINOGEN,URINE 0.2 mg/dL (<=1.0)
[2019-09-19 23:23] LABS: AMPHET/METH SCREEN,URINE NEGATIVE (NEGATIVE); BARBITURATE SCREEN, URINE NEGATIVE (NEGATIVE); BENZODIAZEPINES SCREEN,URINE NEGATIVE (NEGATIVE); CANNABINOID SCREEN,URINE NEGATIVE (NEGATIVE); COCAINE SCREEN,URINE NEGATIVE (NEGATIVE); METHADONE SCREEN, URINE NEGATIVE (NEGATIVE); OPIATE SCREEN,URINE NEGATIVE (NEGATIVE); PHENCYCLIDINE SCREEN,URINE NEGATIVE (NEGATIVE)
[2019-09-19 23:26] LABS: RBC,URINE 0-2 /HPF (0-2); WBC,URINE 0-2 /HPF (0-5)
[2019-09-19 23:27] LABS: BACTERIA,URINE Moderate /HPF (None Seen); SQUAMOUS EPITHELIAL CELL,UR Few /LPF (None Seen)
[2019-09-20 00:04] VITALS: BP 135/86
== END 2019-09-20 00:08 | disposition home or self-care (01) ==
LOC: EMS 21:29
DX: F41.9 Anxiety disorder, unspecified (principal); E87.6 Hypokalemia; F32.9 Major depressive disorder, single episode, unspecified; I10 Essential (primary) hypertension; Z88.0 Allergy status to penicillin; Z88.6 Allergy status to analgesic agent; Z88.2 Allergy status to sulfonamides; Z79.899 Other long term (current) drug therapy
CPT/HCPCS: 36415; 80048; 80307; 81001; 84484; 84703; 85025; 87077; 87086; 87186; 93005; 99284; G0480

== ENCOUNTER 2019-10-18 10:44 | Emergency (ER) | payer MEDICAID ==
[~2019-10-18] VITALS: Ht 160 cm; Wt 72.7 kg
[2019-10-18 12:45] VITALS: BP 136/96
== END 2019-10-18 12:45 | disposition home or self-care (01) ==
LOC: EMS 10:57
DX: J02.8 Acute pharyngitis due to other specified organisms (principal); B02.9 Zoster without complications; R13.10 Dysphagia, unspecified; F41.9 Anxiety disorder, unspecified; F31.9 Bipolar disorder, unspecified; I10 Essential (primary) hypertension; Z20.828 Contact with and (suspected) exposure to other viral communicable diseases; Z88.0 Allergy status to penicillin; Z88.5 Allergy status to narcotic agent; Z88.1 Allergy status to other antibiotic agents
CPT/HCPCS: 87430; 99283; U0003

== ENCOUNTER 2020-01-08 16:38 | Emergency (ER) | payer MEDICAID, OTHER ==
[~2020-01-08] VITALS: Ht 160 cm; Wt 72.7 kg
[2020-01-08 17:51] LABS: APPEARANCE,URINE CLEAR (CLEAR); BILIRUBIN,URINE NEGATIVE (NEGATIVE); GLUCOSE, URINE (UA) NEGATIVE (NEGATIVE); KETONES,URINE NEGATIVE (NEGATIVE); LEUKOCYTE ESTERASE ,URINE NEGATIVE (NEGATIVE); NITRATE,URINE NEGATIVE (NEGATIVE); OCCULT BLOOD,URINE MODERATE (NEGATIVE); PROTEIN,URINE NEGATIVE (NEGATIVE); UROBILINOGEN,URINE 0.2 mg/dL (<=1.0)
[2020-01-08 18:02] LABS: BACTERIA,URINE Few /HPF (None Seen); SQUAMOUS EPITHELIAL CELL,UR Many /LPF (None Seen)
[2020-01-08 18:55] LABS: BASOPHILS % (AUTO) 1.4 % (0.0-2.0); EOSINOPHILS % (AUTO) 3.8 % (1.0-6.0); HEMATOCRIT 39.8 % (36-46); LYMPHOCYTES # (AUTO) 1.5 K/uL (1.0-4.8); LYMPHOCYTES % (AUTO) 16.9 % (22.0-44.0); MEAN CORPUSCULAR HEMOGLOBIN 29.6 pg (26.0-34.0); MEAN CORPUSCULAR HGB CONC 32.7 G/dL (31.0-37.0); MEAN CORPUSCULAR VOLUME 90 fL (80-100); MONOCYTES # (AUTO) 0.4 K/uL (0.1-1.0); MONOCYTES % (AUTO) 4.6 % (2.0-9.0); NEUTROPHILS # (AUTO) 6.3 K/uL (1.8-7.7); NEUTROPHILS % (AUTO) 73.3 % (40.0-70.0); PLATELET COUNT (AUTO) 237 K/uL (150-450); RED BLOOD CELL COUNT(AUTO) 4.41 MIL/uL (4.00-5.20); RED CELL DISTRIBUTION WIDTH 14.7 % (11.5-14.5)
[2020-01-08 19:08] LABS: ANION GAP 10 mmol/L (8-16); CALCIUM, TOTAL 8.8 mg/dL (8.8-10.5); CARBON DIOXIDE 26 mmol/L (22-29); CHLORIDE 104 mmol/L (98-107); CREATININE 0.68 mg/dL (0.60-1.30); GLOMERULAR FILTR. RATE CALC > 60 mL/min (>60); GLUCOSE,RANDOM 92 mg/dL (70-110); POTASSIUM 3.2 mmol/L (3.5-5.1); SODIUM SERUM 140 mmol/L (136-145); UREA NITROGEN, BLOOD 6 mg/dL (7-18)
[2020-01-08 19:12] LABS: ALANINE AMINOTRANSFERASE 222 U/L (12-78); ALBUMIN 3.3 g/dL (3.4-5.0); ALKALINE PHOSPHATASE 71 U/L (46-116); ASPARTATE AMINOTRANSFERASE 290 U/L (15-37); BILIRUBIN,TOTAL 0.7 mg/dL (0.1-1.0); TOTAL PROTEIN, SERUM 7.4 g/dL (6.4-8.2)
[2020-01-08] MEDS ORDERED: IBUPROFEN 600 MG TABLET PO ONE (20:45)
[2020-01-08 21:20] VITALS: BP 119/74
== END 2020-01-08 21:45 | disposition home or self-care (01) ==
LOC: EMS 16:38
DX: R10.2 Pelvic and perineal pain (principal); R11.0 Nausea; F41.9 Anxiety disorder, unspecified; F31.9 Bipolar disorder, unspecified; I10 Essential (primary) hypertension
CPT/HCPCS: 76830; 76856

== ENCOUNTER 2020-02-27 19:54 | Emergency (ER) | payer OTHER ==
[~2020-02-27] VITALS: Ht 160 cm; Wt 68.2 kg
[2020-02-27] MEDS ORDERED: DiphenhydrAMINE HCL 50 MG/ML VIAL IVP ONE (22:45)
[2020-02-27] MEDS ORDERED: SODIUM CHLORIDE 0.9% 1,000 ML IV ONE (22:45)
[2020-02-27] MEDS ORDERED: MAG HYDROX/AL HYDROX/SIMETH 30 ML SUSP UDCUP PO ONE (22:45)
[2020-02-27] MEDS ORDERED: FAMOTIDINE 10 MG/ML 2 ML VIAL IVP ONE (22:45)
[2020-02-27] MEDS ORDERED: ACETAMINOPHEN 500 MG TABLET PO ONE (22:45)
[2020-02-27] MEDS ORDERED: METOCLOPRAMIDE HCL 5 MG/ML 2 ML VIAL IVP ONE (22:45)
[2020-02-27 23:28] LABS: EOSINOPHILS % (AUTO) 4.7 % (1.0-6.0); HEMATOCRIT 37.2 % (36-46); HEMOGLOBIN 12.2 g/dL (12.0-16.0); LYMPHOCYTES # (AUTO) 1.7 K/uL (1.0-4.8); LYMPHOCYTES % (AUTO) 18.6 % (22.0-44.0); MEAN CORPUSCULAR HEMOGLOBIN 29.7 pg (26.0-34.0); MEAN CORPUSCULAR HGB CONC 32.9 G/dL (31.0-37.0); MEAN CORPUSCULAR VOLUME 90 fL (80-100); MONOCYTES # (AUTO) 0.5 K/uL (0.1-1.0); MONOCYTES % (AUTO) 5.1 % (2.0-9.0); NEUTROPHILS # (AUTO) 6.5 K/uL (1.8-7.7); NEUTROPHILS % (AUTO) 70.6 % (40.0-70.0); PLATELET COUNT (AUTO) 220 K/uL (150-450); RED BLOOD CELL COUNT(AUTO) 4.12 MIL/uL (4.00-5.20); RED CELL DISTRIBUTION WIDTH 16.2 % (11.5-14.5)
[2020-02-27 23:59] LABS: ANION GAP 7 mmol/L (8-16); CALCIUM, TOTAL 8.1 mg/dL (8.8-10.5); CARBON DIOXIDE 29 mmol/L (22-29); CHLORIDE 104 mmol/L (98-107); CREATININE 0.61 mg/dL (0.60-1.30); GLOMERULAR FILTR. RATE CALC > 60 mL/min (>60); GLUCOSE,RANDOM 83 mg/dL (70-110); POTASSIUM 3.3 mmol/L (3.5-5.1); SODIUM SERUM 140 mmol/L (136-145); UREA NITROGEN, BLOOD 7 mg/dL (7-18)
[2020-02-28 00:21] LABS: ALANINE AMINOTRANSFERASE 416 U/L (12-78); ALBUMIN 3.1 g/dL (3.4-5.0); ALKALINE PHOSPHATASE 79 U/L (46-116); ASPARTATE AMINOTRANSFERASE 449 U/L (15-37); BILIRUBIN,TOTAL 0.8 mg/dL (0.1-1.0); HCG,QUANTITATIVE < 1 mIU/mL (0-6); LIPASE 77 U/L (73-393); TOTAL PROTEIN, SERUM 7.3 g/dL (6.4-8.2)
[2020-02-28] MEDS ORDERED: POTASSIUM CHLORIDE 20 MEQ ER TABLET PO ONE (00:30)
[2020-02-28 02:56] VITALS: BP 120/64
== END 2020-02-28 03:07 | disposition home or self-care (01) ==
LOC: EMS 19:54
DX: R10.12 Left upper quadrant pain (principal); R42 Dizziness and giddiness; R11.2 Nausea with vomiting, unspecified; F41.9 Anxiety disorder, unspecified; F31.9 Bipolar disorder, unspecified; I10 Essential (primary) hypertension; Z88.0 Allergy status to penicillin; Z88.1 Allergy status to other antibiotic agents; Z88.5 Allergy status to narcotic agent
CPT/HCPCS: 74177; 76700; 80053; 83690; 84702; 85025; 96361; 96374; 96375; 99285; G0480; J1200; J2765; J3490; J7030

== ENCOUNTER 2020-03-18 10:55 | Emergency (ER) | payer OTHER ==
[~2020-03-18] VITALS: Ht 160 cm; Wt 72.7 kg
[2020-03-18] MEDS ORDERED: SODIUM CHLORIDE 0.9% 1,000 ML IV ONE (11:30)
[2020-03-18 12:47] LABS: COVID AG,FIA SOURCE NASAL SWAB
[2020-03-18 12:57] LABS: BASOPHILS % (AUTO) 0.8 % (0.0-2.0); EOSINOPHILS % (AUTO) 1.7 % (1.0-6.0); HEMATOCRIT 36.2 % (36-46); HEMOGLOBIN 12.1 g/dL (12.0-16.0); LYMPHOCYTES # (AUTO) 0.9 K/uL (1.0-4.8); LYMPHOCYTES % (AUTO) 21.8 % (22.0-44.0); MEAN CORPUSCULAR HEMOGLOBIN 29.6 pg (26.0-34.0); MEAN CORPUSCULAR HGB CONC 33.3 G/dL (31.0-37.0); MEAN CORPUSCULAR VOLUME 89 fL (80-100); MONOCYTES # (AUTO) 0.3 K/uL (0.1-1.0); MONOCYTES % (AUTO) 7.5 % (2.0-9.0); NEUTROPHILS # (AUTO) 2.7 K/uL (1.8-7.7); NEUTROPHILS % (AUTO) 68.2 % (40.0-70.0); PLATELET COUNT (AUTO) 137 K/uL (150-450); RED BLOOD CELL COUNT(AUTO) 4.08 MIL/uL (4.00-5.20)
[2020-03-18 13:14] LABS: ANION GAP 9 mmol/L (8-16); CALCIUM, TOTAL 7.9 mg/dL (8.8-10.5); CARBON DIOXIDE 26 mmol/L (22-29); CHLORIDE 104 mmol/L (98-107); CREATININE 0.75 mg/dL (0.60-1.30); GLOMERULAR FILTR. RATE CALC > 60 mL/min (>60); GLUCOSE,RANDOM 97 mg/dL (70-110); POTASSIUM 3.4 mmol/L (3.5-5.1); SODIUM SERUM 139 mmol/L (136-145); UREA NITROGEN, BLOOD 7 mg/dL (7-18)
[2020-03-18 13:26] LABS: ALANINE AMINOTRANSFERASE 321 U/L (12-78); ALBUMIN 2.8 g/dL (3.4-5.0); ALKALINE PHOSPHATASE 65 U/L (46-116); ASPARTATE AMINOTRANSFERASE 376 U/L (15-37); BILIRUBIN,TOTAL 0.4 mg/dL (0.1-1.0); HCG,QUANTITATIVE < 1 mIU/mL (0-6); TOTAL PROTEIN, SERUM 6.3 g/dL (6.4-8.2)
[2020-03-18 15:41] VITALS: BP 109/84
== END 2020-03-18 15:50 | disposition home or self-care (01) ==
LOC: EMS 10:58
DX: U07.1 COVID-19 (principal); F31.9 Bipolar disorder, unspecified; I10 Essential (primary) hypertension
CPT/HCPCS: 36415; 71045; 80053; 84702; 85025; 87426; 96360; 99284; J7030

== ENCOUNTER 2020-05-10 10:50 | Emergency (ER) | payer OTHER ==
[~2020-05-10] VITALS: Ht 160 cm; Wt 72.7 kg
[2020-05-10] MEDS ORDERED: SODIUM CHLORIDE 0.9% 1,000 ML IV ONE (11:45)
[2020-05-10] MEDS ORDERED: LORazepam 2 MG/ML VIAL IVP ONE (11:45)
[2020-05-10 12:46] LABS: EOSINOPHILS % (AUTO) 0.4 % (1.0-6.0); HEMATOCRIT 40.4 % (36-46); HEMOGLOBIN 13.5 g/dL (12.0-16.0); LYMPHOCYTES # (AUTO) 2.4 K/uL (1.0-4.8); LYMPHOCYTES % (AUTO) 27.2 % (22.0-44.0); MEAN CORPUSCULAR HEMOGLOBIN 30.5 pg (26.0-34.0); MEAN CORPUSCULAR HGB CONC 33.4 G/dL (31.0-37.0); MEAN CORPUSCULAR VOLUME 91 fL (80-100); MONOCYTES # (AUTO) 0.7 K/uL (0.1-1.0); MONOCYTES % (AUTO) 8.3 % (2.0-9.0); NEUTROPHILS # (AUTO) 5.4 K/uL (1.8-7.7); NEUTROPHILS % (AUTO) 63.1 % (40.0-70.0); PLATELET COUNT (AUTO) 223 K/uL (150-450); RED BLOOD CELL COUNT(AUTO) 4.42 MIL/uL (4.00-5.20); RED CELL DISTRIBUTION WIDTH 15.9 % (11.5-14.5)
[2020-05-10 12:47] LABS: APPEARANCE,URINE CLEAR (CLEAR); BILIRUBIN,URINE NEGATIVE (NEGATIVE); GLUCOSE, URINE (UA) NEGATIVE (NEGATIVE); KETONES,URINE TRACE mg/dL (NEGATIVE); LEUKOCYTE ESTERASE ,URINE NEGATIVE (NEGATIVE); NITRATE,URINE NEGATIVE (NEGATIVE); OCCULT BLOOD,URINE NEGATIVE (NEGATIVE); PROTEIN,URINE NEGATIVE (NEGATIVE)
[2020-05-10 12:52] LABS: AMPHET/METH SCREEN,URINE POSITIVE (NEGATIVE); BARBITURATE SCREEN, URINE NEGATIVE (NEGATIVE); BENZODIAZEPINES SCREEN,URINE NEGATIVE (NEGATIVE); CANNABINOID SCREEN,URINE NEGATIVE (NEGATIVE); COCAINE SCREEN,URINE NEGATIVE (NEGATIVE); METHADONE SCREEN, URINE NEGATIVE (NEGATIVE); OPIATE SCREEN,URINE NEGATIVE (NEGATIVE)
[2020-05-10 12:53] LABS: PHENCYCLIDINE SCREEN,URINE NEGATIVE (NEGATIVE)
[2020-05-10 12:56] LABS: ANION GAP 21 mmol/L (8-16); CALCIUM, TOTAL 9.4 mg/dL (8.8-10.5); CARBON DIOXIDE 17 mmol/L (22-29); CHLORIDE 105 mmol/L (98-107); CREATININE 0.74 mg/dL (0.60-1.30); GLOMERULAR FILTR. RATE CALC > 60 mL/min (>60); GLUCOSE,RANDOM 105 mg/dL (70-110); POTASSIUM 3.1 mmol/L (3.5-5.1); SODIUM SERUM 143 mmol/L (136-145); UREA NITROGEN, BLOOD 5 mg/dL (7-18)
[2020-05-10 13:05] LABS: LITHIUM < 0.20 mmol/L (0.60-1.20)
[2020-05-10 13:15] LABS: BACTERIA,URINE None Seen /HPF (None Seen); RBC,URINE None Seen /HPF (0-2); SQUAMOUS EPITHELIAL CELL,UR Few /LPF (None Seen); WBC,URINE 0-2 /HPF (0-5)
[2020-05-10 13:16] LABS: ALANINE AMINOTRANSFERASE 179 U/L (12-78); ALKALINE PHOSPHATASE 55 U/L (46-116); ASPARTATE AMINOTRANSFERASE 150 U/L (15-37); BILIRUBIN,TOTAL 0.9 mg/dL (0.1-1.0); HCG,QUANTITATIVE < 1 mIU/mL (0-6); TOTAL PROTEIN, SERUM 8.4 g/dL (6.4-8.2)
[2020-05-10 13:53] VITALS: BP 113/42
== END 2020-05-10 14:12 | disposition home or self-care (01) ==
LOC: EMS 10:50
DX: R07.89 Other chest pain (principal); R74.01 Elevation of levels of liver transaminase levels; E87.6 Hypokalemia; F15.90 Other stimulant use, unspecified, uncomplicated; F10.10 Alcohol abuse, uncomplicated; F41.9 Anxiety disorder, unspecified; F31.9 Bipolar disorder, unspecified; I10 Essential (primary) hypertension; F11.90 Opioid use, unspecified, uncomplicated; Z88.0 Allergy status to penicillin; Z88.5 Allergy status to narcotic agent; Z88.1 Allergy status to other antibiotic agents; Y90.0 Blood alcohol level of less than 20 mg/100 ml
CPT/HCPCS: 36415; 71045; 80053; 80178; 80307; 81001; 84702; 85025; 96361; 96374; 99284; G0480; J2060; J7030

== ENCOUNTER 2020-07-01 12:53 | Emergency (ER) | payer OTHER ==
[~2020-07-01] VITALS: Ht 160 cm; Wt 68.2 kg
[2020-07-01 15:12] VITALS: BP 121/80
== END 2020-07-01 16:02 | disposition home or self-care (01) ==
LOC: EMS 12:58
DX: S93.401A Sprain of unspecified ligament of right ankle, initial encounter (principal); F41.9 Anxiety disorder, unspecified; F31.9 Bipolar disorder, unspecified; I10 Essential (primary) hypertension; F11.90 Opioid use, unspecified, uncomplicated; Z88.0 Allergy status to penicillin; Z88.6 Allergy status to analgesic agent; Z88.1 Allergy status to other antibiotic agents; W19.XXXA Unspecified fall, initial encounter; Y93.89 Activity, other specified; Y92.89 Other specified places as the place of occurrence of the external cause; Y99.8 Other external cause status
CPT/HCPCS: 99284; 73610-TC; 73630-TC; Z7502

== ENCOUNTER 2020-10-12 17:07 | Emergency (ER) | payer OTHER ==
[~2020-10-12] VITALS: Ht 160 cm; Wt 72.7 kg
[~2020-10-12 17:07] MED LIST changes: -ESCI20TA87 PO; -QUET100T PO
[2020-10-12 17:28] VITALS: BP 128/96
[2020-10-12] MEDS ORDERED: ESCI-8 PO (17:32)
== END 2020-10-12 20:30 | disposition left against medical advice (07) ==
LOC: EMS 17:10
DX: F10.129 Alcohol abuse with intoxication, unspecified (principal); Z53.21 Procedure and treatment not carried out due to patient leaving prior to being seen by health care provider
CPT/HCPCS: 93005

== ENCOUNTER 2020-12-22 11:37 | Emergency (ER) | payer OTHER ==
[~2020-12-22] VITALS: Ht 160 cm; Wt 72.7 kg
[~2020-12-22 11:37] MED LIST changes: +ESCI-8 PO
[2020-12-22] MEDS ORDERED: MAG HYDROX/AL HYDROX/SIMETH 30 ML SUSP UDCUP PO ONE (12:15)
[2020-12-22] MEDS ORDERED: FAMOTIDINE 20 MG TABLET PO ONE (12:15)
[2020-12-22] MEDS ORDERED: KETOROLAC TROMETHAMINE 30 MG/ML VIAL IM ONE (12:15)
[2020-12-22 12:26] LABS: BASOPHILS % (AUTO) 0.9 % (0.0-2.0); EOSINOPHILS % (AUTO) 4.5 % (1.0-6.0); HEMATOCRIT 39.7 % (36-46); HEMOGLOBIN 13.4 g/dL (12.0-16.0); LYMPHOCYTES # (AUTO) 1.5 K/uL (1.0-4.8); MEAN CORPUSCULAR HEMOGLOBIN 32.3 pg (26.0-34.0); MEAN CORPUSCULAR HGB CONC 33.8 G/dL (31.0-37.0); MEAN CORPUSCULAR VOLUME 95 fL (80-100); MONOCYTES # (AUTO) 0.5 K/uL (0.1-1.0); MONOCYTES % (AUTO) 7.8 % (2.0-9.0); NEUTROPHILS # (AUTO) 4.5 K/uL (1.8-7.7); NEUTROPHILS % (AUTO) 64.8 % (40.0-70.0); PLATELET COUNT (AUTO) 195 K/uL (150-450); RED BLOOD CELL COUNT(AUTO) 4.16 MIL/uL (4.00-5.20); RED CELL DISTRIBUTION WIDTH 13.4 % (11.5-14.5)
[2020-12-22 12:42] LABS: ANION GAP 9 mmol/L (8-16); CALCIUM, TOTAL 8.3 mg/dL (8.8-10.5); CARBON DIOXIDE 27 mmol/L (22-29); CHLORIDE 105 mmol/L (98-107); CREATININE 0.77 mg/dL (0.60-1.30); GLOMERULAR FILTR. RATE CALC > 60 mL/min (>60); GLUCOSE,RANDOM 105 mg/dL (70-110); POTASSIUM 3.3 mmol/L (3.5-5.1); SODIUM SERUM 141 mmol/L (136-145); UREA NITROGEN, BLOOD 8 mg/dL (7-18)
[2020-12-22 12:45] LABS: APPEARANCE,URINE CLEAR (CLEAR); BILIRUBIN,URINE NEGATIVE (NEGATIVE); GLUCOSE, URINE (UA) NEGATIVE (NEGATIVE); KETONES,URINE NEGATIVE (NEGATIVE); LEUKOCYTE ESTERASE ,URINE NEGATIVE (NEGATIVE); NITRATE,URINE NEGATIVE (NEGATIVE); OCCULT BLOOD,URINE NEGATIVE (NEGATIVE); PROTEIN,URINE NEGATIVE (NEGATIVE); UROBILINOGEN,URINE 0.2 mg/dL (<=1.0)
[2020-12-22 12:53] LABS: ALBUMIN 3.3 g/dL (3.4-5.0); ALKALINE PHOSPHATASE 81 U/L (46-116); ASPARTATE AMINOTRANSFERASE 148 U/L (15-37); BILIRUBIN,TOTAL 0.6 mg/dL (0.1-1.0); HCG,QUANTITATIVE 1 mIU/mL (0-6); TOTAL PROTEIN, SERUM 7.5 g/dL (6.4-8.2)
[2020-12-22] MEDS ORDERED: AZITHROMYCIN 500 MG TABLET PO ONE (13:00)
[2020-12-22] MEDS ORDERED: GENTAMICIN SULFATE 40 MG/ML 2 ML VIAL IM ONE (13:00)
[2020-12-22 13:01] LABS: ALANINE AMINOTRANSFERASE 170 U/L (12-78)
[2020-12-22 14:50] VITALS: BP 124/79
== END 2020-12-22 15:05 | disposition home or self-care (01) ==
LOC: EMS 11:37
DX: R59.0 Localized enlarged lymph nodes (principal); I10 Essential (primary) hypertension; Z88.0 Allergy status to penicillin; Z88.1 Allergy status to other antibiotic agents; Z88.2 Allergy status to sulfonamides; Z88.8 Allergy status to other drugs, medicaments and biological substances; Z79.899 Other long term (current) drug therapy
CPT/HCPCS: 36415; 76817; 80053; 81003; 84702; 85025; 87210; 87491; 87591; 96372; 99284; J1580; J1885; Q9967

== ENCOUNTER 2021-08-11 23:30 | Emergency (ER) | payer OTHER ==
[~2021-08-11] VITALS: Ht 160 cm; Wt 72.7 kg
[~2021-08-11 23:30] MED LIST changes: +BUPR-50 PO; -BUPR-93 PO
[2021-08-12] MEDS ORDERED: ONDANSETRON HCL 4 MG/2 ML VIAL IVP ONE (01:00)
[2021-08-12 01:13] LABS: APPEARANCE,URINE CLEAR (CLEAR); BILIRUBIN,URINE NEGATIVE (NEGATIVE); GLUCOSE, URINE (UA) NEGATIVE (NEGATIVE); KETONES,URINE NEGATIVE (NEGATIVE); LEUKOCYTE ESTERASE ,URINE MODERATE (NEGATIVE); NITRATE,URINE NEGATIVE (NEGATIVE); OCCULT BLOOD,URINE NEGATIVE (NEGATIVE); PROTEIN,URINE NEGATIVE (NEGATIVE); SPECIFIC GRAVITIY, URINE 1.003 (1.003-1.030); UROBILINOGEN,URINE <=1.0 mg/dL (<=1.0)
[2021-08-12 01:14] LABS: BASOPHILS % (AUTO) 0.9 % (0.0-2.0); EOSINOPHILS % (AUTO) 2.7 % (1.0-6.0); HEMATOCRIT 42.5 % (36-46); HEMOGLOBIN 14.4 g/dL (12.0-16.0); LYMPHOCYTES % (AUTO) 28.3 % (22.0-44.0); MEAN CORPUSCULAR HEMOGLOBIN 32.3 pg (26.0-34.0); MEAN CORPUSCULAR HGB CONC 33.8 G/dL (31.0-37.0); MEAN CORPUSCULAR VOLUME 95 fL (80-100); MONOCYTES # (AUTO) 0.4 K/uL (0.1-1.0); MONOCYTES % (AUTO) 5.6 % (2.0-9.0); NEUTROPHILS # (AUTO) 4.4 K/uL (1.8-7.7); NEUTROPHILS % (AUTO) 62.5 % (40.0-70.0); PLATELET COUNT (AUTO) 203 K/uL (150-450); RED BLOOD CELL COUNT(AUTO) 4.46 MIL/uL (4.00-5.20); RED CELL DISTRIBUTION WIDTH 12.7 % (11.5-14.5)
[2021-08-12 01:21] LABS: ANION GAP 10 mmol/L (8-16); CARBON DIOXIDE 28 mmol/L (22-29); CHLORIDE 102 mmol/L (98-107); CREATININE 0.72 mg/dL (0.60-1.30); GLUCOSE,RANDOM 99 mg/dL (70-110); POTASSIUM 3.1 mmol/L (3.5-5.1); SODIUM SERUM 140 mmol/L (136-145); UREA NITROGEN, BLOOD 5 mg/dL (7-18)
[2021-08-12 01:29] LABS: BACTERIA,URINE Few /HPF (None Seen); RBC,URINE None Seen /HPF (0-2)
[2021-08-12] MEDS ORDERED: MORPHINE SULFATE 4 MG/ML SYRINGE IVP ONE (01:30)
[2021-08-12] MEDS ORDERED: SODIUM CHLORIDE 0.9% 1,000 ML IV ONE (01:30)
[2021-08-12 01:35] LABS: GLOMERULAR FILTR. RATE CALC > 60 mL/min (>60)
[2021-08-12 01:42] LABS: ALANINE AMINOTRANSFERASE 177 U/L (12-78); ALBUMIN 3.8 g/dL (3.4-5.0); ALKALINE PHOSPHATASE 83 U/L (46-116); ASPARTATE AMINOTRANSFERASE 161 U/L (15-37); BILIRUBIN,TOTAL 0.7 mg/dL (0.1-1.0); HCG,QUANTITATIVE < 1 mIU/mL (0-6); LIPASE 75 U/L (73-393)
[2021-08-12] MEDS ORDERED: CefTRIAXone 1 GM/DEXTROSE 50 ML IV ONE (02:15)
[2021-08-12 05:00] VITALS: BP 129/95
[2021-08-12] MEDS ORDERED: CEFD300C3 PO (05:32)
== END 2021-08-12 06:40 | disposition home or self-care (01) ==
LOC: EMS 23:31
DX: N12 Tubulo-interstitial nephritis, not specified as acute or chronic (principal); F32.A Depression, unspecified; I10 Essential (primary) hypertension; F60.3 Borderline personality disorder; Z98.890 Other specified postprocedural states; Z88.0 Allergy status to penicillin; Z88.2 Allergy status to sulfonamides; Z88.1 Allergy status to other antibiotic agents
CPT/HCPCS: 36415; 74176; 80053; 81001; 83690; 84702; 85025; 87086; 87491; 87591; 96361; 96365; 96375; 99284; J0696; J2270; J2405; J7030

== ENCOUNTER 2022-03-04 06:16 | Emergency (ER) | payer OTHER ==
[~2022-03-04] VITALS: Ht 162.6 cm; Wt 75.0 kg
[~2022-03-04 06:16] MED LIST changes: +CEFD300C18 PO
[2022-03-04] MEDS ORDERED: KETOROLAC TROMETHAMINE 30 MG/ML VIAL IVP ONE (07:00)
[2022-03-04] MEDS ORDERED: ONDANSETRON HCL 4 MG/2 ML VIAL IVP ONE (07:00)
[2022-03-04] MEDS ORDERED: SODIUM CHLORIDE 0.9% 1,000 ML IV ONE (07:00)
[2022-03-04 07:22] LABS: BASOPHILS % (AUTO) 1.4 % (0.0-2.0); EOSINOPHILS % (AUTO) 3.8 % (1.0-6.0); HEMATOCRIT 36.9 % (36-46); HEMOGLOBIN 12.8 g/dL (12.0-16.0); LYMPHOCYTES # (AUTO) 2.5 K/uL (1.0-4.8); LYMPHOCYTES % (AUTO) 32.5 % (22.0-44.0); MEAN CORPUSCULAR HEMOGLOBIN 33.5 pg (26.0-34.0); MEAN CORPUSCULAR HGB CONC 34.7 G/dL (31.0-37.0); MEAN CORPUSCULAR VOLUME 97 fL (80-100); MONOCYTES # (AUTO) 0.4 K/uL (0.1-1.0); MONOCYTES % (AUTO) 5.7 % (2.0-9.0); NEUTROPHILS # (AUTO) 4.3 K/uL (1.8-7.7); NEUTROPHILS % (AUTO) 56.6 % (40.0-70.0); PLATELET COUNT (AUTO) 177 K/uL (150-450); RED BLOOD CELL COUNT(AUTO) 3.83 MIL/uL (4.00-5.20); RED CELL DISTRIBUTION WIDTH 13.1 % (11.5-14.5)
[2022-03-04 07:42] LABS: APPEARANCE,URINE CLEAR (CLEAR); BILIRUBIN,URINE NEGATIVE (NEGATIVE); GLUCOSE, URINE (UA) NEGATIVE (NEGATIVE); KETONES,URINE NEGATIVE (NEGATIVE); LEUKOCYTE ESTERASE ,URINE NEGATIVE (NEGATIVE); NITRATE,URINE NEGATIVE (NEGATIVE); OCCULT BLOOD,URINE NEGATIVE (NEGATIVE); PH,URINE 6.5 (5.0-8.0); PROTEIN,URINE NEGATIVE (NEGATIVE); SPECIFIC GRAVITIY, URINE 1.013 (1.003-1.030); UROBILINOGEN,URINE <=1.0 mg/dL (<=1.0)
[2022-03-04 08:03] LABS: ALANINE AMINOTRANSFERASE 81 U/L (12-78); ALBUMIN 3.3 g/dL (3.4-5.0); ALKALINE PHOSPHATASE 83 U/L (46-116); ANION GAP 8 mmol/L (8-16); ASPARTATE AMINOTRANSFERASE 81 U/L (15-37); BILIRUBIN,TOTAL 0.4 mg/dL (0.1-1.0); CALCIUM, TOTAL 8.7 mg/dL (8.8-10.5); CARBON DIOXIDE 29 mmol/L (22-29); CHLORIDE 104 mmol/L (98-107); CREATININE 0.76 mg/dL (0.60-1.30); GLUCOSE,RANDOM 111 mg/dL (70-110); HCG,QUANTITATIVE < 1 mIU/mL (0-6); LIPASE 90 U/L (73-393); SODIUM SERUM 141 mmol/L (136-145); TOTAL PROTEIN, SERUM 7.2 g/dL (6.4-8.2); UREA NITROGEN, BLOOD 9 mg/dL (7-18)
[2022-03-04 08:04] LABS: GLOMERULAR FILTR. RATE CALC > 60 mL/min (>60); POTASSIUM 2.9 mmol/L (3.5-5.1)
[2022-03-04] MEDS ORDERED: POTASSIUM CHLORIDE 20 MEQ ER TABLET PO ONE (08:15)
[2022-03-04 09:42] VITALS: BP 128/89
[2022-03-04] MEDS ORDERED: IBUP-1492 PO (09:44)
[2022-03-04] MEDS ORDERED: CYCL-448 PO (09:44)
== END 2022-03-04 10:33 | disposition home or self-care (01) ==
LOC: EMS 06:18
DX: R10.9 Unspecified abdominal pain (principal); F32.A Depression, unspecified; I10 Essential (primary) hypertension; Z98.890 Other specified postprocedural states; Z88.0 Allergy status to penicillin; Z88.2 Allergy status to sulfonamides; Z88.8 Allergy status to other drugs, medicaments and biological substances
CPT/HCPCS: 80053; 81003; 83690; 84702; 85025; 36415; 74176; 99285; 96361; 96374; 96375; J1885; J2405; J7030

== ENCOUNTER 2022-07-15 00:26 | Emergency (ER) | payer OTHER ==
[~2022-07-15] VITALS: Ht 160 cm; Wt 72.7 kg
[~2022-07-15 00:26] MED LIST changes: +CYCL-448 PO; +IBUP-1492 PO
[2022-07-15] MEDS ORDERED: AmLODIPine BESYLATE 5 MG TABLET PO ONE (03:45)
[2022-07-15] MEDS ORDERED: LORazepam 1 MG TABLET PO ONE (03:45)
[2022-07-15 06:08] VITALS: BP 139/88
== END 2022-07-15 06:08 | disposition home or self-care (01) ==
LOC: EMS 00:27
DX: R51.9 Headache, unspecified (principal); I10 Essential (primary) hypertension; F32.A Depression, unspecified; Z98.890 Other specified postprocedural states; Z88.0 Allergy status to penicillin; Z88.2 Allergy status to sulfonamides; Z88.8 Allergy status to other drugs, medicaments and biological substances
CPT/HCPCS: 99285; Z7502; Z7610

== ENCOUNTER 2023-01-24 13:38 | Emergency (ER) | payer OTHER ==
[~2023-01-24] VITALS: Ht 160 cm; Wt 77.3 kg
[~2023-01-24 13:38] MED LIST changes: -CEFD300C18 PO; -CYCL-448 PO; -IBUP-1492 PO
[2023-01-24 13:47] VITALS: BP 133/87; PULSE 78; RESP 16; TEMP 98.5
[2023-01-24 16:19] LABS: INFLUENZA A-RTPCR,COMBO NEGATIVE FOR FLU A (NEGATIVE); INFLUENZA B-RTPCR,COMBO NEGATIVE FOR FLU B (NEGATIVE)
[2023-01-24] MEDS ORDERED: OFLO5DRO49 OS (16:46)
[2023-01-25 11:43] LABS: SARS COVID19 RTPCR, COMBO NEGATIVE (NEGATIVE)
[2023-01-25 11:47] LABS: RESPIRATORY SYNCYTIAL VRS-PCR NEGATIVE (NEGATIVE)
== END 2023-01-24 16:54 | disposition home or self-care (01) ==
LOC: EMS 14:18
DX: H10.9 Unspecified conjunctivitis (principal); F32.A Depression, unspecified; I10 Essential (primary) hypertension; Z98.890 Other specified postprocedural states; Z88.0 Allergy status to penicillin; Z88.2 Allergy status to sulfonamides; Z88.8 Allergy status to other drugs, medicaments and biological substances
CPT/HCPCS: 99283; 0241U; C9803

== ENCOUNTER 2024-12-29 04:39 | Inpatient (IN) | payer MEDICAID, OTHER ==
[~2024-12-29] VITALS: Ht 160 cm; Wt 72.6 kg
[~2024-12-29 04:39] MED LIST changes: +OFLO5DRO49 OS
[2024-12-29] MEDS: ACETAMINOPHEN 500 MG TABLET PO ONE (05:42)
[2024-12-29 05:57] LABS: PLATELET COUNT (AUTO) 261 K/uL (150-450); RED BLOOD CELL COUNT(AUTO) 4.44 MIL/uL (4.00-5.20); RED CELL DISTRIBUTION WIDTH 15.6 % (11.5-14.5); WHITE BLOOD COUNT (AUTO) 8.0 K/uL (4.5-11.0)
[2024-12-29 06:12] LABS: CALCIUM, TOTAL 8.8 mg/dL (8.8-10.5); CREATININE 0.73 mg/dL (0.60-1.30); GLOMERULAR FILTR. RATE CALC > 60 mL/min (>60); GLUCOSE,RANDOM 99 mg/dL (70-110); SODIUM SERUM 138 mmol/L (136-145); UREA NITROGEN, BLOOD 8 mg/dL (7-18)
[2024-12-29 07:32] LABS: COVID AG,FIA SOURCE NASAL SWAB
[2024-12-29 07:39] LABS: APPEARANCE,URINE CLEAR (CLEAR); GLUCOSE, URINE (UA) NEGATIVE (NEGATIVE); LEUKOCYTE ESTERASE ,URINE NEGATIVE (NEGATIVE); NITRATE,URINE NEGATIVE (NEGATIVE); OCCULT BLOOD,URINE NEGATIVE (NEGATIVE); PH,URINE DRUG SCREEN 7.0 (5.0-8.0); SPECIFIC GRAVITIY, URINE 1.002 (1.003-1.030)
[2024-12-29 07:46] LABS: ALCOHOL, URINE DRUG SCREEN POSITIVE (NEGATIVE); AMPHET/METH SCREEN,URINE POSITIVE (NEGATIVE); BARBITURATE SCREEN, URINE NEGATIVE (NEGATIVE); CANNABINOID SCREEN,URINE NEGATIVE (NEGATIVE); COCAINE SCREEN,URINE NEGATIVE (NEGATIVE); METHADONE SCREEN, URINE NEGATIVE (NEGATIVE)
[2024-12-29 07:57] LABS: SARS-COV2 (COVID) ANTIGEN,FIA Negative (Negative)
[2024-12-29] MEDS: ONDANSETRON 4 MG TABLET PO ONE (09:54)
[2024-12-29 10:30] VITALS: O2SAT 99
[2024-12-29 16:30] VITALS: BP 126/102; PULSE 112; RESP 16; TEMP 97.2; O2SAT 97
[2024-12-29] MEDS: BACITRACIN 28 GM OINTMENT TP SCH (16:31)
[2024-12-29 19:02] VITALS: PULSE 95
[2024-12-29 20:00] VITALS: BP 132/72; PULSE 87; RESP 18; TEMP 98.1; O2SAT 97
[2024-12-30 07:53] VITALS: BP 117/83; PULSE 74; RESP 16; TEMP 98.6; O2SAT 94
[2024-12-30] MEDS ORDERED: ALBUTEROL SULFATE HFA 90 MCG/PUFF 8 GM INHALER IH PRN (08:30)
[2024-12-30] MEDS ORDERED: ONDANSETRON 4 MG TABLET PO PRN (08:30)
[2024-12-30] MEDS ORDERED: NICOTINE 14 MG/24 HOUR PATCH TD PRN (08:30)
[2024-12-30] MEDS ORDERED: LOPERAMIDE HCL 2 MG CAPSULE PO PRN (08:30)
[2024-12-30] MEDS ORDERED: MAGNESIUM HYDROXIDE SUSPENSION 30 ML UDCUP PO PRN (08:30)
[2024-12-30] MEDS ORDERED: PETROLATUM,WHITE 28 GM JELLY TP PRN (08:30)
[2024-12-30] MEDS ORDERED: MAG HYDROX/ALUMINUM HYD/SIMETH ES 30 ML SUSPENSION UDCUP PO PRN (08:30)
[2024-12-30] MEDS ORDERED: GuaiFENesin/D-METHORPHAN [SUGAR-FREE] 200-20MG/10 ML SYRUP UDCUP PO PRN (08:30)
[2024-12-30 08:37] LABS: PLATELET COUNT (AUTO) 202 K/uL (150-450); RED BLOOD CELL COUNT(AUTO) 3.81 MIL/uL (4.00-5.20); RED CELL DISTRIBUTION WIDTH 15.7 % (11.5-14.5); WHITE BLOOD COUNT (AUTO) 7.5 K/uL (4.5-11.0)
[2024-12-30 09:00] LABS: ASPARTATE AMINOTRANSFERASE 17 U/L (15-37); CALCIUM, TOTAL 8.2 mg/dL (8.8-10.5); CHOL/HDL RATIO 2.7 (3.9-5.7); CREATININE 0.75 mg/dL (0.60-1.30); GLOMERULAR FILTR. RATE CALC > 60 mL/min (>60); GLUCOSE,RANDOM 113 mg/dL (70-110); LDL CHOL (CALC.) 64 mg/dL (0-130); SODIUM SERUM 137 mmol/L (136-145); TOTAL PROTEIN, SERUM 7.2 g/dL (6.4-8.2); UREA NITROGEN, BLOOD 13 mg/dL (7-18)
[2024-12-30 12:54] VITALS: BP 117/83; PULSE 74; TEMP 98.6
[2024-12-30] MEDS: DIVALPROEX SODIUM 500 MG DR TABLET PO SCH (17:39)
[2024-12-30] MEDS: LITHIUM CARBONATE 300 MG CAPSULE PO SCH (17:39)
[2024-12-30 20:04] VITALS: BP 140/98; PULSE 71; RESP 19; TEMP 97.5; O2SAT 100
[2024-12-31 08:01] VITALS: BP 105/70; PULSE 84; RESP 16; TEMP 97.7; O2SAT 98
[2024-12-31 09:28] LABS: CHOL/HDL RATIO 2.7 (3.9-5.7); LDL CHOL (CALC.) 57.0 mg/dL (0-130)
[2024-12-31 12:30] VITALS: BP 107/72; PULSE 70; RESP 16; O2SAT 98
[2024-12-31 17:00] VITALS: BP 112/84; PULSE 78; RESP 17; TEMP 97.3; O2SAT 99
[2024-12-31 19:06] LABS: HEPATITIS C AB (EIA) Non Reactive (Non Reactive)
[2024-12-31 20:17] VITALS: BP 112/76; PULSE 74; RESP 17; TEMP 97.6; O2SAT 98
[2025-01-01 08:07] VITALS: BP 103/60; PULSE 82; RESP 16; TEMP 97.5; O2SAT 97
[2025-01-01 20:01] VITALS: BP 110/65; PULSE 97; RESP 16; TEMP 97; O2SAT 97
[2025-01-01] MEDS: ZOLPIDEM TARTRATE 10 MG TABLET PO PRN (21:59)
[2025-01-02 08:03] VITALS: BP 114/78; PULSE 91; RESP 16; TEMP 97.6; O2SAT 98
[2025-01-02 20:30] VITALS: BP 116/83; PULSE 74; RESP 16; TEMP 97
[2025-01-03 08:15] VITALS: BP 126/82; PULSE 88; RESP 17; TEMP 97.9; O2SAT 98
[2025-01-03] MEDS: DOCUSATE SODIUM 100 MG CAPSULE PO PRN (09:18)
[2025-01-03 20:08] VITALS: BP 121/87; PULSE 71; RESP 18; TEMP 97.9; O2SAT 98
[2025-01-04] VITALS (8 sets, daily range): BP systolic 100–126; BP diastolic 64–87; PULSE 71–84; RESP 16–18; TEMP 97.3–97.5; O2SAT 96–100
[2025-01-04 08:59] LABS: VALPROIC ACID 47.0 mcg/mL (50-100)
[2025-01-04] MEDS: ACETAMINOPHEN 325 MG TABLET PO PRN (09:34)
[2025-01-04] MEDS: POTASSIUM CHLORIDE 20 MEQ ER TABLET PO ONE (10:47)
[2025-01-04] MEDS: IBUPROFEN 400 MG TABLET PO PRN (12:35)
[2025-01-05 08:07] VITALS: BP 96/54; PULSE 79; RESP 16; TEMP 97.8; O2SAT 97
[2025-01-05] MEDS: POTASSIUM CHLORIDE 20 MEQ ER TABLET PO ONE (10:28)
[2025-01-05 20:19] VITALS: BP 99/63; PULSE 84; RESP 18; TEMP 98.4; O2SAT 96
[2025-01-06 08:14] VITALS: BP 108/72; PULSE 79; RESP 16; TEMP 97.2; O2SAT 98
[2025-01-06 20:12] VITALS: BP 124/85; PULSE 75; RESP 16; TEMP 97.5; O2SAT 98
[2025-01-07 08:02] VITALS: BP 111/84; PULSE 88; RESP 16; TEMP 97.6; O2SAT 99
[2025-01-07 20:05] VITALS: BP 130/82; PULSE 75; RESP 16; TEMP 97.3; O2SAT 98
[2025-01-08] MEDS: LITHIUM CARBONATE 300 MG TABLET PO SCH (08:05)
[2025-01-08] MEDS: DIVALPROEX SODIUM 250 MG DR TABLET PO SCH (08:05)
[2025-01-08 08:08] VITALS: BP 111/88; PULSE 106; RESP 16; TEMP 97.2; O2SAT 99
[2025-01-08 20:41] VITALS: BP 115/85; PULSE 79; RESP 16; TEMP 97.5; O2SAT 98
[2025-01-09 08:10] VITALS: BP 106/81; PULSE 87; RESP 16; TEMP 97.7; O2SAT 98
[2025-01-09] MEDS ORDERED: AMLO-257 PO (17:15)
[2025-01-09] MEDS ORDERED: DIVA-111 PO (17:15)
[2025-01-09] MEDS ORDERED: LITH300T PO (17:15)
[2025-01-09] MEDS ORDERED: QUET300T19 PO (17:15)
== END 2025-01-09 16:50 | disposition home or self-care (01) | DRG 753 ==
LOC: EMS 04:39 → B3A 12:04
PROVIDERS: ADMIT Psychiatry & Neurology Psychiatry; ATTEND Psychiatry & Neurology Psychiatry
PROC: GZHZZZZ Group Psychotherapy (ICD-10-PCS; principal; 2024-12-30)
PROC: GZ52ZZZ Individual Psychotherapy, Cognitive (ICD-10-PCS; 2025-01-01)
DX: F31.4 Bipolar disorder, current episode depressed, severe, without psychotic features (principal); F25.1 Schizoaffective disorder, depressive type; I10 Essential (primary) hypertension; F15.10 Other stimulant abuse, uncomplicated; F10.10 Alcohol abuse, uncomplicated; E87.6 Hypokalemia; F41.9 Anxiety disorder, unspecified; K21.9 Gastro-esophageal reflux disease without esophagitis; S61.419A Laceration without foreign body of unspecified hand, initial encounter; X78.8XXA Intentional self-harm by other sharp object, initial encounter; G47.00 Insomnia, unspecified; R45.851 Suicidal ideations; Y90.7 Blood alcohol level of 200-239 mg/100 ml; Z59.00 Homelessness unspecified; Z79.899 Other long term (current) drug therapy; Z87.59 Personal history of other complications of pregnancy, childbirth and the puerperium; Z88.0 Allergy status to penicillin; Z88.2 Allergy status to sulfonamides; Z91.51 Personal history of suicidal behavior; Y93.89 Activity, other specified; Y92.89 Other specified places as the place of occurrence of the external cause; Y99.8 Other external cause status; Z20.822 Contact with and (suspected) exposure to COVID-19
CPT/HCPCS: 80048; 80053; 80061; 80164; 80178; 80307; 81003; 83036; 84132; 84436; 84443; 84703; 85025; 86803; 87340; 99285; G0480; Q0162